=== PATIENT | male | born 1940 ===

== ENCOUNTER 2020-07-04 07:35 | Outpatient (REF) | payer MEDICARE, SELFPAY ==
[2020-07-04 10:12] LABS: MANUAL DIFF FLAG NO
[2020-07-04 10:44] LABS: Basophils Absolute Auto 0.1 X10*3/uL (0.0-0.2); Basophils Percent Auto 0.6 % (0-2); Eosinophils Absolute Auto 0.3 X10*3/uL (0.0-0.4); Eosinophils Percent Auto 3.5 % (0-4); Hematocrit 36.7 % (42-52); Hemoglobin 11.8 g/dl (14.0-18.0); Imm Gran Abs Auto 0.01 X10*3/uL (0.00-0.03); Imm Gran Pct Auto 0.1 % (0.0-0.4); Lymphocytes Absolute Auto 1.2 X10*3/uL (1.2-4.9); Lymphocytes Percent Auto 14.4 % (20-40); Mean Corpuscular HGB Conc 32.2 g/dl (31.0-36.0); Mean Corpuscular Volume 102.5 fL (80-98); Mean Platelet Volume 11.8 fL (9.4-12.4); Monocytes Absolute Auto 0.7 X10*3/uL (0.1-1.2); Monocytes Percent Auto 8.9 % (2-11); Neutrophils Absolute Auto 5.8 X10*3/uL (2.0-8.3); Neutrophils Percent Auto 72.5 % (45-73); Platelet Count 152 X10*3/uL (160-400); Red Blood Count 3.58 X10*6/uL (4.60-5.80); Red Cell Distribution Width 13.8 % (11.0-16.0); White Blood Count 8.1 X10*3/uL (4.8-10.8)
[2020-07-04 11:17] LABS: Alanine Aminotransferase 9 U/L (0-40); Albumin Level 3.3 g/dL (3.5-5.0); Alkaline Phosphatase 50 U/L (39-117); Anion Gap 9 (12-20); Aspartate Amino Transferase 16 U/L (5-37); Bilirubin Total 0.7 mg/dL (0.0-1.0); Blood Urea Nitrogen 30 mg/dL (9-16); Calcium 8.2 mg/dL (8.4-10.2); Carbon Dioxide 30 mmol/L (22-29); Chloride 106 mmol/L (96-108); Estimated Glomerular Filt Rate 39; Glucose Fasting 98 mg/dL (60-99); Magnesium 1.8 mg/dL (1.6-2.6); Phosphorus 3.4 mg/dL (2.7-4.5); Potassium 3.6 mmol/l (3.3-5.1); Sodium 141 mmol/L (135-145); Total Protein 5.8 g/dL (6.5-8.0)
[2020-07-06 01:17] LABS: Tacrolimus Prograf 4.2 mcg/L
== END 2020-07-04 07:36 | disposition home or self-care (01) ==
LOC: HO.10HDL 07:35
PROVIDERS: Visit Provider Internal Medicine Nephrology
DX: Z94.0 Kidney transplant status (principal)
CPT/HCPCS: 36415; 80053; 80197; 83735; 84100; 85025

== ENCOUNTER 2020-07-16 21:57 | Emergency (ER) | payer MEDICARE, SELFPAY ==
[2020-07-16 22:15] VITALS: BP 130/55; PULSE 87; RESP 18; TEMP 36.7; O2SAT 96; BMI 24.5
--- NOTE | 2020-07-16 22:16 | ECG_ITS ---
Test Reason : COUGH Blood Pressure : / mmHG Vent. Rate : 063 BPM Atrial Rate : 063 BPM P-R Int : 138 ms QRS Dur : 096 ms QT Int : 442 ms P-R-T Axes : 024 -19 064 degrees QTc Int : 452 ms Sinus rhythm with Premature atrial complexes Left anterior fascicular block Abnormal ECG When compared to prvious ECG of 14-JUL-2020 04:57:36 Premature atrial complexes are new Referred By: Ericka Guy Electronically Signed By:FLORENCE MENDOZA MD
--- NOTE | 2020-07-16 22:16 | ED.URI ---
HPI - URI/Sore Throat General Chief Complaint: Upper Respiratory Symptoms Stated Complaint: cough,covids swabb Time Seen by Provider: 07/16/20 22:15 Source: patient Mode of arrival: ambulatory Limitations: no limitations History of Present Illness HPI Narrative: cough for 2 days, ate bad carrots last night threw up x 2, PCP sent him in for CXR and COVID swab MD elicited complaint: cough and other (vomited x 2 in the middle of the night) Pertinent past history: immunosuppression (s/p renal transplant over 10 years ago on tacrolimus and prednisone) Onset (ago): day(s) (2) Consistency: intermittent Severity: mild Description of mucous: clear Able to tolerate fluids by mouth: Yes Exacerbating factors: nothing Relieving factors: nothing Associated symptoms: cough and vomiting Treatments prior to arrival: none Related Data Allergies Allergy/AdvReac Type Severity Reaction Status Date / Time No Known Allergies [NKA] Allergy Verified 07/16/20 22:13 Review of Systems Review of Systems: Constitutional : no Fever, no Chills, no fatigue, no Malaise ENT/Mouth : no sore throat, positive runny nose Eyes: No Discharge Cardiovascular : No Chest Pain, No SOB Respiratory : pos Cough, No Sputum Gastrointestinal : No Nausea, pos Vomiting, No Diarrhea Genitourinary : No Dysuria, No Urinary Frequency Musculoskeletal : positive Myalgia Skin : No rash Neuro : No Headache PMFSH Past Medical History Medical History Hernia Lymphedema Surgical History Kidney transplant recipient Renal transplant recipient Social History Social History (Updated 07/16/20 @ 22:35 by Ericka Guy DO) Alcohol intake: unknown Smoking Status: Former smoker Smoked in Last 30 Days: No Use of substances other than those prescribed or required for medical reasons: No Advance Directives: No Advance Directives Information Provided: No Advance Directives Date on File: 07/04/20 Physical Exam Vital Signs: Vital Signs: Vital Signs Temp Pulse Resp BP Pulse Ox 07/16/20 23:20 97.9 F 62 18 134/51 L 100 07/16/20 23:14 98 07/16/20 22:15 98.0 F 87 18 130/55 L 96 Body Mass Index 24.5 Appearance: Alert. Oriented X3. No acute distress. Eyes: Pupils equal, round and reactive to light. ENT: Pharynx normal. Neck: Normal inspection. Neck supple. CVS: Normal heart rate and rhythm. Pulses normal. Respiratory: No respiratory distress. Breath sounds normal. Abdomen: Soft and nontender. Skin: Skin warm and dry. Normal skin color. Normal skin turgor. Extremities: + bilateral 3+ lower extremity edema. No calf ttp Neuro: Oriented X 3. No motor deficit. No sensory deficit. Course Course Course Narrative: Cr 1.69 so only .3 increase from last check but will need close follow up with PCP, will provide gentle hydration no PNA on exam, COVID sent off MDM - URI/Sore Throat MDM Narrative Medical decision making narrative: 80 yo male with dry cough x 2 days but also thinks he ate some old carrots and vomited x 2 at 2am and 4am today - no belly pain no diarrhea, feels fine now, states his PCP sent him in for CXR and COVID swab, at this time will need labs, CXR, COVID swab - dispo per results and improvement Lab Data Result diagrams: 07/16/20 22:48 07/16/20 22:48 Labs: Lab Results 07/16/20 07/16/20 07/16/20 Range/Units 22:48 22:48 22:48 WBC 11.5 H (4.8-10.8) X10*3/uL RBC 3.36 L (4.60-5.80) X10*6/uL Hgb 11.2 L (14.0-18.0) g/dl Hct 34.1 L (42-52) % MCV 101.5 H (80-98) fL MCH 33.3 H (27.0-33.0) pg MCHC 32.8 (31.0-36.0) g/dl RDW 14.0 (11.0-16.0) % Plt Count 131 L (160-400) X10*3/uL MPV 11.1 (9.4-12.4) fL Immature Gran % (Auto) 0.3 (0.0-0.4) % Neut % (Auto) 82.7 H (45-73) % Lymph % (Auto) 9.5 L (20-40) % Moffat % (Auto) 6.5 (2-11) % Eos % (Auto) 0.8 (0-4) % Baso % (Auto) 0.2 (0-2) % Lymph # (Auto) 1.1 L (1.2-4.9) X10*3/uL Moffat # (Auto) 0.7 (0.1-1.2) X10*3/uL Eos # (Auto) 0.1 (0.0-0.4) X10*3/uL Baso # (Auto) 0.0 (0.0-0.2) X10*3/uL Abs Immat Gran (auto) 0.03 (0.00-0.03) X10*3/uL Absolute Neuts (auto) 9.5 H (2.0-8.3) X10*3/uL Absolute Nucleated RBC 0.000 (0.0-0.012) X10*3/uL Nucleated RBC % (auto) 0.0 (0.0-0.2) /100WBC Smear Tech's Comments VERIFIED PT 12.9 (10.8-13.0) SEC INR 1.1 (0.9-1.1) APTT 27.4 (24.1-38.0) SEC Sodium 140 (135-145) mmol/L Potassium 4.4 D (3.3-5.1) mmol/l Chloride 105 (96-108) mmol/L Carbon Dioxide 25 (22-29) mmol/L Anion Gap 14 (12-20) BUN 40 H (9-16) mg/dL Creatinine 2.08 H (0.5-1.4) mg/dL Estim Creat Clear Calc 28.7 Estimated GFR 31 Random Glucose 103 (60-115) mg/dL Calcium 8.1 L (8.4-10.2) mg/dL Magnesium (1.6-2.6) mg/dL Total Bilirubin (0.0-1.0) mg/dL Direct Bilirubin (0.0-0.5) mg/dL AST (5-37) U/L ALT (0-40) U/L Alkaline Phosphatase (39-117) U/L Total Protein (6.5-8.0) g/dL Albumin (3.5-5.0) g/dL 10/27/20 Range/Units 22:48 WBC (4.8-10.8) X10*3/uL RBC (4.60-5.80) X10*6/uL Hgb (14.0-18.0) g/dl Hct (42-52) % MCV (80-98) fL MCH (27.0-33.0) pg MCHC (31.0-36.0) g/dl RDW (11.0-16.0) % Plt Count (160-400) X10*3/uL MPV (9.4-12.4) fL Immature Gran % (Auto) (0.0-0.4) % Neut % (Auto) (45-73) % Lymph % (Auto) (20-40) % Moffat % (Auto) (2-11) % Eos % (Auto) (0-4) % Baso % (Auto) (0-2) % Lymph # (Auto) (1.2-4.9) X10*3/uL Moffat # (Auto) (0.1-1.2) X10*3/uL Eos # (Auto) (0.0-0.4) X10*3/uL Baso # (Auto) (0.0-0.2) X10*3/uL Abs Immat Gran (auto) (0.00-0.03) X10*3/uL Absolute Neuts (auto) (2.0-8.3) X10*3/uL Absolute Nucleated RBC (0.0-0.012) X10*3/uL Nucleated RBC % (auto) (0.0-0.2) /100WBC Smear Tech's Comments PT (10.8-13.0) SEC INR (0.9-1.1) APTT (24.1-38.0) SEC Sodium (135-145) mmol/L Potassium (3.3-5.1) mmol/l Chloride (96-108) mmol/L Carbon Dioxide (22-29) mmol/L Anion Gap (12-20) BUN (9-16) mg/dL Creatinine (0.5-1.4) mg/dL Estim Creat Clear Calc Estimated GFR Random Glucose (60-115) mg/dL Calcium (8.4-10.2) mg/dL Magnesium 2.0 (1.6-2.6) mg/dL Total Bilirubin 0.7 (0.0-1.0) mg/dL Direct Bilirubin 0.4 (0.0-0.5) mg/dL AST 18 (5-37) U/L ALT 8 (0-40) U/L Alkaline Phosphatase 53 (39-117) U/L Total Protein 6.0 L (6.5-8.0) g/dL Albumin 3.4 L (3.5-5.0) g/dL ECG Data Attestation: I personally reviewed and interpreted this ECG as follows: ECG interpretation date: 07/16/20 ECG interpretation time: 23:30 Interpretation: Rate: 63 Rhythm: NSR, frequent PACs [place]: left Normal P waves. Normal KAVON. Normal QRS complex. ST T wave : nonspecific qTC: normal prior studies: no acute ischemia The study has been interpreted contemporaneously by me. . Discharge Plan Discharge Clinical Impression: Acute kidney injury Patient Disposition: Home, Self-Care Instructions: COVID-19 (Coronavirus Disease 2019) (ED), Dehydration (ED) Additional Instructions: you were tested for COVID we will call you with results in 2 to 4 days, wear a mask, socially distance Referrals: Physician,Unknown [Primary Care Provider] - 2 days (call your doctor for repeat kidney function in 2 days, your last Cr was 1.7 today it was 2.0)
--- NOTE | 2020-07-16 22:17 | XR_ITS ---
EXAMINATION: XR CHEST CLINICAL INFORMATION: Cough COMPARISON: 01/11/2020 TECHNIQUE: Frontal view of the chest was obtained. FINDINGS: The heart and pulmonary vessels appear normal. No evidence of CHF. No acute infiltrates effusions or lung masses are seen. Again noted is bibasilar scarring/atelectasis. XR/XR chest 1V IMPRESSION: No acute intrathoracic disease.
[2020-07-16 22:57] LABS: Eosinophils Absolute Auto 0.1 X10*3/uL (0.0-0.4); Eosinophils Percent Auto 0.8 % (0-4); Imm Gran Abs Auto 0.03 X10*3/uL (0.00-0.03); Imm Gran Pct Auto 0.3 % (0.0-0.4); Lymphocytes Percent Auto 9.5 % (20-40); MANUAL DIFF FLAG SCAN; PLT CLUMP 1; SCAN SMEAR FLAG 1
[2020-07-16 22:59] LABS: Basophils Percent Auto 0.2 % (0-2); Hematocrit 34.1 % (42-52); Hemoglobin 11.2 g/dl (14.0-18.0); Lymphocytes Absolute Auto 1.1 X10*3/uL (1.2-4.9); Mean Corpuscular HGB Conc 32.8 g/dl (31.0-36.0); Mean Corpuscular Hemoglobin 33.3 pg (27.0-33.0); Mean Corpuscular Volume 101.5 fL (80-98); Mean Platelet Volume 11.1 fL (9.4-12.4); Monocytes Absolute Auto 0.7 X10*3/uL (0.1-1.2); Monocytes Percent Auto 6.5 % (2-11); Neutrophils Absolute Auto 9.5 X10*3/uL (2.0-8.3); Neutrophils Percent Auto 82.7 % (45-73); Platelet Count 131 X10*3/uL (160-400); Red Blood Count 3.36 X10*6/uL (4.60-5.80); White Blood Count 11.5 X10*3/uL (4.8-10.8)
[2020-07-16 23:00] LABS: SLIDE REVIEW VERIFIED
[2020-07-16 23:11] LABS: INTERNATIONAL NORM RATIO 1.1 (0.9-1.1); Prothrombin Time 12.9 SEC (10.8-13.0)
[2020-07-16 23:13] LABS: Partial Thromboplastin Time 27.4 SEC (24.1-38.0)
[2020-07-16 23:14] VITALS: O2SAT 98
[2020-07-16 23:20] VITALS: BP 134/51; PULSE 62; RESP 18; TEMP 36.6; O2SAT 100
[2020-07-16 23:36] LABS: Alanine Aminotransferase 8 U/L (0-40); Albumin Level 3.4 g/dL (3.5-5.0); Alkaline Phosphatase 53 U/L (39-117); Aspartate Amino Transferase 18 U/L (5-37); Bilirubin Direct 0.4 mg/dL (0.0-0.5); Bilirubin Total 0.7 mg/dL (0.0-1.0)
[2020-07-16 23:37] LABS: Anion Gap 14 (12-20); Blood Urea Nitrogen 40 mg/dL (9-16); Calcium 8.1 mg/dL (8.4-10.2); Carbon Dioxide 25 mmol/L (22-29); Chloride 105 mmol/L (96-108); Creatinine Clr Calc Pharmacy 28.7; Estimated Glomerular Filt Rate 31; Glucose Random 103 mg/dL (60-115); Potassium 4.4 mmol/l (3.3-5.1); Sodium 140 mmol/L (135-145)
[2020-07-16 23:43] LABS: B Type Natriuretic Peptide 416 pg/mL (<100)
[2020-07-16] MEDS: 0.9 % Sodium Chloride 1,000 ML 500 ML IVCONT (23:52)
[2020-07-17 01:39] VITALS: BP 145/62; PULSE 68; RESP 16; O2SAT 99
== END 2020-07-17 01:56 | disposition home or self-care (01) ==
PROVIDERS: Emergency Provider Emergency Medicine
DX: N17.9 Acute kidney failure, unspecified (principal); R11.10 Vomiting, unspecified; E86.0 Dehydration; Z20.828 Contact with and (suspected) exposure to other viral communicable diseases; Z87.891 Personal history of nicotine dependence; Z79.899 Other long term (current) drug therapy; Z94.0 Kidney transplant status
CPT/HCPCS: 36415; 71045; 80048; 80076; 83735; 83880; 85025; 85610; 85730; 87040; 87635; 93005; 96360; 96361; 99284

== ENCOUNTER 2020-08-07 08:53 | Outpatient (REF) | payer MEDICARE, SELFPAY ==
[2020-08-07 10:45] LABS: MANUAL DIFF FLAG NO
[2020-08-07 10:58] LABS: Basophils Percent Auto 0.5 % (0-2); Eosinophils Absolute Auto 0.3 X10*3/uL (0.0-0.4); Eosinophils Percent Auto 4.6 % (0-4); Hematocrit 35.1 % (42-52); Hemoglobin 11.3 g/dl (14.0-18.0); Imm Gran Abs Auto 0.01 X10*3/uL (0.00-0.03); Imm Gran Pct Auto 0.2 % (0.0-0.4); Lymphocytes Percent Auto 16.6 % (20-40); Mean Corpuscular HGB Conc 32.2 g/dl (31.0-36.0); Mean Corpuscular Hemoglobin 33.2 pg (27.0-33.0); Mean Corpuscular Volume 103.2 fL (80-98); Mean Platelet Volume 11.6 fL (9.4-12.4); Monocytes Absolute Auto 0.5 X10*3/uL (0.1-1.2); Monocytes Percent Auto 8.9 % (2-11); Neutrophils Absolute Auto 4.2 X10*3/uL (2.0-8.3); Neutrophils Percent Auto 69.2 % (45-73); Platelet Count 161 X10*3/uL (160-400); Red Cell Distribution Width 13.7 % (11.0-16.0)
[2020-08-07 11:42] LABS: Alanine Aminotransferase 8 U/L (0-40); Albumin Level 3.2 g/dL (3.5-5.0); Alkaline Phosphatase 46 U/L (39-117); Anion Gap 11 (12-20); Aspartate Amino Transferase 16 U/L (5-37); Bilirubin Total 0.7 mg/dL (0.0-1.0); Blood Urea Nitrogen 33 mg/dL (9-16); Calcium 8.1 mg/dL (8.4-10.2); Carbon Dioxide 26 mmol/L (22-29); Chloride 105 mmol/L (96-108); Estimated Glomerular Filt Rate 38; Glucose Random 138 mg/dL (60-115); Magnesium 1.9 mg/dL (1.6-2.6); Sodium 138 mmol/L (135-145); Total Protein 5.6 g/dL (6.5-8.0)
[2020-08-08 10:57] LABS: Tacrolimus Prograf 4.3 mcg/L
== END 2020-08-07 08:54 | disposition home or self-care (01) ==
LOC: HO.10HDL 08:53
PROVIDERS: Visit Provider Internal Medicine Nephrology
DX: D89.9 Disorder involving the immune mechanism, unspecified (principal); Z94.0 Kidney transplant status
CPT/HCPCS: 36415; 80053; 80197; 83735; 85025

== ENCOUNTER 2020-10-10 08:25 | Outpatient (REF) | payer MEDICARE, SELFPAY ==
[2020-10-10 10:14] LABS: MANUAL DIFF FLAG NO
[2020-10-10 10:18] LABS: Basophils Percent Auto 0.7 % (0-2); Eosinophils Absolute Auto 0.3 X10*3/uL (0.0-0.4); Eosinophils Percent Auto 4.1 % (0-4); Hematocrit 35.8 % (42-52); Hemoglobin 11.7 g/dl (14.0-18.0); Imm Gran Abs Auto 0.01 X10*3/uL (0.00-0.03); Imm Gran Pct Auto 0.2 % (0.0-0.4); Lymphocytes Absolute Auto 1.1 X10*3/uL (1.2-4.9); Lymphocytes Percent Auto 18.5 % (20-40); Mean Corpuscular HGB Conc 32.7 g/dl (31.0-36.0); Mean Corpuscular Hemoglobin 33.7 pg (27.0-33.0); Mean Corpuscular Volume 103.2 fL (80-98); Mean Platelet Volume 11.5 fL (9.4-12.4); Monocytes Absolute Auto 0.6 X10*3/uL (0.1-1.2); Monocytes Percent Auto 9.9 % (2-11); Neutrophils Absolute Auto 4.1 X10*3/uL (2.0-8.3); Neutrophils Percent Auto 66.6 % (45-73); Platelet Count 141 X10*3/uL (160-400); Red Blood Count 3.47 X10*6/uL (4.60-5.80); Red Cell Distribution Width 13.7 % (11.0-16.0); White Blood Count 6.1 X10*3/uL (4.8-10.8)
[2020-10-10 10:56] LABS: Alanine Aminotransferase 10 U/L (0-40); Albumin Level 3.2 g/dL (3.5-5.0); Alkaline Phosphatase 45 U/L (39-117); Anion Gap 12 (12-20); Aspartate Amino Transferase 15 U/L (5-37); Bilirubin Total 0.5 mg/dL (0.0-1.0); Blood Urea Nitrogen 33 mg/dL (9-16); Calcium 8.1 mg/dL (8.4-10.2); Carbon Dioxide 27 mmol/L (22-29); Chloride 106 mmol/L (96-108); Estimated Glomerular Filt Rate 41; Glucose Fasting 95 mg/dL (60-99); Magnesium 1.9 mg/dL (1.6-2.6); Phosphorus 3.4 mg/dL (2.7-4.5); Sodium 141 mmol/L (135-145); Total Protein 5.5 g/dL (6.5-8.0)
== END 2020-10-10 08:26 | disposition home or self-care (01) ==
LOC: HO.10HDL 08:25
PROVIDERS: Absent Provider Family Medicine; Referring Provider Internal Medicine Nephrology; Visit Provider Internal Medicine Nephrology
DX: D89.9 Disorder involving the immune mechanism, unspecified (principal); Z94.0 Kidney transplant status
CPT/HCPCS: 36415; 80053; 80197; 83735; 84100; 85025

== ENCOUNTER 2020-11-11 08:54 | Outpatient (REF) | payer MEDICARE, SELFPAY ==
[2020-11-11 10:18] LABS: MANUAL DIFF FLAG NO
[2020-11-11 10:22] LABS: Basophils Percent Auto 0.6 % (0-2); Eosinophils Absolute Auto 0.2 X10*3/uL (0.0-0.4); Eosinophils Percent Auto 4.6 % (0-4); Hematocrit 36.2 % (42-52); Hemoglobin 11.7 g/dl (14.0-18.0); Imm Gran Abs Auto 0.01 X10*3/uL (0.00-0.03); Imm Gran Pct Auto 0.2 % (0.0-0.4); Lymphocytes Absolute Auto 1.3 X10*3/uL (1.2-4.9); Lymphocytes Percent Auto 26.3 % (20-40); Mean Corpuscular HGB Conc 32.3 g/dl (31.0-36.0); Mean Corpuscular Hemoglobin 33.5 pg (27.0-33.0); Mean Corpuscular Volume 103.7 fL (80-98); Mean Platelet Volume 11.7 fL (9.4-12.4); Monocytes Absolute Auto 0.5 X10*3/uL (0.1-1.2); Monocytes Percent Auto 10.2 % (2-11); Neutrophils Absolute Auto 2.9 X10*3/uL (2.0-8.3); Neutrophils Percent Auto 58.1 % (45-73); Platelet Count 135 X10*3/uL (160-400); Red Blood Count 3.49 X10*6/uL (4.60-5.80); Red Cell Distribution Width 13.7 % (11.0-16.0)
[2020-11-11 10:48] LABS: Alanine Aminotransferase 8 U/L (0-40); Albumin Level 3.2 g/dL (3.5-5.0); Alkaline Phosphatase 46 U/L (39-117); Anion Gap 12 (12-20); Aspartate Amino Transferase 15 U/L (5-37); Bilirubin Total 0.8 mg/dL (0.0-1.0); Blood Urea Nitrogen 33 mg/dL (9-16); Calcium 8.1 mg/dL (8.4-10.2); Carbon Dioxide 28 mmol/L (22-29); Chloride 108 mmol/L (96-108); Estimated Glomerular Filt Rate 35; Glucose Random 153 mg/dL (60-115); Magnesium 1.8 mg/dL (1.6-2.6); Phosphorus 3.4 mg/dL (2.7-4.5); Sodium 144 mmol/L (135-145); Total Protein 5.6 g/dL (6.5-8.0)
[2020-11-12 08:21] LABS: Tacrolimus Prograf 4.7 mcg/L
== END 2020-11-11 08:55 | disposition home or self-care (01) ==
LOC: HO.10HDL 08:54
PROVIDERS: Absent Provider Family Medicine; Referring Provider Internal Medicine Nephrology; Visit Provider Internal Medicine Nephrology
DX: D89.9 Disorder involving the immune mechanism, unspecified (principal); Z94.0 Kidney transplant status
CPT/HCPCS: 36415; 80053; 80197; 83735; 84100; 85025

== ENCOUNTER 2020-12-04 09:07 | Outpatient (REF) | payer MEDICARE, SELFPAY ==
[2020-12-04 10:26] LABS: Basophils Percent Auto 0.7 % (0-2); Eosinophils Absolute Auto 0.3 X10*3/uL (0.0-0.4); Eosinophils Percent Auto 5.6 % (0-4); Hematocrit 35.3 % (42-52); Hemoglobin 11.4 g/dl (14.0-18.0); Imm Gran Abs Auto 0.02 X10*3/uL (0.00-0.03); Imm Gran Pct Auto 0.3 % (0.0-0.4); Lymphocytes Absolute Auto 1.2 X10*3/uL (1.2-4.9); Lymphocytes Percent Auto 20.2 % (20-40); MANUAL DIFF FLAG NO; Mean Corpuscular HGB Conc 32.3 g/dl (31.0-36.0); Mean Corpuscular Hemoglobin 33.6 pg (27.0-33.0); Mean Corpuscular Volume 104.1 fL (80-98); Mean Platelet Volume 11.7 fL (9.4-12.4); Monocytes Absolute Auto 0.7 X10*3/uL (0.1-1.2); Monocytes Percent Auto 10.9 % (2-11); Neutrophils Absolute Auto 3.7 X10*3/uL (2.0-8.3); Neutrophils Percent Auto 62.3 % (45-73); Platelet Count 137 X10*3/uL (160-400); Red Blood Count 3.39 X10*6/uL (4.60-5.80); Red Cell Distribution Width 13.7 % (11.0-16.0); White Blood Count 5.9 X10*3/uL (4.8-10.8)
[2020-12-04 11:06] LABS: Alanine Aminotransferase 7 U/L (0-40); Albumin Level 3.2 g/dL (3.5-5.0); Alkaline Phosphatase 44 U/L (39-117); Anion Gap 11 (12-20); Aspartate Amino Transferase 15 U/L (5-37); Bilirubin Total 0.8 mg/dL (0.0-1.0); Blood Urea Nitrogen 36 mg/dL (9-16); Calcium 7.9 mg/dL (8.4-10.2); Carbon Dioxide 27 mmol/L (22-29); Chloride 109 mmol/L (96-108); Estimated Glomerular Filt Rate 36; Glucose Random 117 mg/dL (60-115); Magnesium 1.9 mg/dL (1.6-2.6); Phosphorus 3.8 mg/dL (2.7-4.5); Sodium 143 mmol/L (135-145); Total Protein 5.5 g/dL (6.5-8.0)
[2020-12-05 08:02] LABS: Tacrolimus Prograf 4.2 mcg/L
== END 2020-12-04 09:08 | disposition home or self-care (01) ==
LOC: HO.10HDLR 09:07
PROVIDERS: Absent Provider Family Medicine; Referring Provider Internal Medicine Nephrology; Visit Provider Internal Medicine Nephrology
DX: D89.9 Disorder involving the immune mechanism, unspecified (principal); Z94.0 Kidney transplant status
CPT/HCPCS: 36415; 80053; 80197; 83735; 84100; 85025

== ENCOUNTER 2021-01-02 08:31 | Outpatient (REF) | payer MEDICARE, SELFPAY ==
[2021-01-02 10:21] LABS: MANUAL DIFF FLAG NO
[2021-01-02 10:23] LABS: Basophils Absolute Auto 0.1 X10*3/uL (0.0-0.2); Basophils Percent Auto 0.8 % (0-2); Eosinophils Absolute Auto 0.3 X10*3/uL (0.0-0.4); Eosinophils Percent Auto 4.6 % (0-4); Hematocrit 37.1 % (42-52); Hemoglobin 12.2 g/dl (14.0-18.0); Imm Gran Abs Auto 0.01 X10*3/uL (0.00-0.03); Imm Gran Pct Auto 0.2 % (0.0-0.4); Lymphocytes Absolute Auto 1.3 X10*3/uL (1.2-4.9); Lymphocytes Percent Auto 20.5 % (20-40); Mean Corpuscular HGB Conc 32.9 g/dl (31.0-36.0); Mean Corpuscular Hemoglobin 34.1 pg (27.0-33.0); Mean Corpuscular Volume 103.6 fL (80-98); Mean Platelet Volume 11.8 fL (9.4-12.4); Monocytes Absolute Auto 0.7 X10*3/uL (0.1-1.2); Monocytes Percent Auto 10.2 % (2-11); Neutrophils Absolute Auto 4.2 X10*3/uL (2.0-8.3); Neutrophils Percent Auto 63.7 % (45-73); Platelet Count 147 X10*3/uL (160-400); Red Blood Count 3.58 X10*6/uL (4.60-5.80); Red Cell Distribution Width 13.4 % (11.0-16.0); White Blood Count 6.6 X10*3/uL (4.8-10.8)
[2021-01-02 10:44] LABS: Alanine Aminotransferase 10 U/L (0-40); Albumin Level 3.4 g/dL (3.5-5.0); Alkaline Phosphatase 47 U/L (39-117); Anion Gap 12 (12-20); Aspartate Amino Transferase 14 U/L (5-37); Bilirubin Total 0.8 mg/dL (0.0-1.0); Blood Urea Nitrogen 34 mg/dL (9-16); Calcium 8.3 mg/dL (8.4-10.2); Carbon Dioxide 26 mmol/L (22-29); Chloride 109 mmol/L (96-108); Estimated Glomerular Filt Rate 40; Glucose Fasting 101 mg/dL (60-99); Magnesium 1.9 mg/dL (1.6-2.6); Phosphorus 3.3 mg/dL (2.7-4.5); Sodium 143 mmol/L (135-145); Total Protein 5.9 g/dL (6.5-8.0)
[2021-01-03 05:32] LABS: Tacrolimus Prograf 3.7 mcg/L
== END 2021-01-02 08:32 | disposition home or self-care (01) ==
LOC: HO.10HDLR 08:31
PROVIDERS: Absent Provider Family Medicine; Referring Provider Internal Medicine Nephrology; Visit Provider Internal Medicine Nephrology
DX: Z94.0 Kidney transplant status (principal)
CPT/HCPCS: 36415; 80053; 80197; 83735; 84100; 85025

== ENCOUNTER 2021-01-30 09:27 | Outpatient (REF) | payer MEDICARE, SELFPAY ==
[2021-01-30 10:23] LABS: MANUAL DIFF FLAG NO
[2021-01-30 10:30] LABS: Basophils Absolute Auto 0.1 X10*3/uL (0.0-0.2); Eosinophils Absolute Auto 0.3 X10*3/uL (0.0-0.4); Eosinophils Percent Auto 5.5 % (0-4); Hematocrit 35.3 % (42-52); Hemoglobin 11.4 g/dl (14.0-18.0); Imm Gran Abs Auto 0.02 X10*3/uL (0.00-0.03); Imm Gran Pct Auto 0.4 % (0.0-0.4); Lymphocytes Absolute Auto 0.9 X10*3/uL (1.2-4.9); Lymphocytes Percent Auto 17.3 % (20-40); Mean Corpuscular HGB Conc 32.3 g/dl (31.0-36.0); Mean Corpuscular Hemoglobin 33.6 pg (27.0-33.0); Mean Corpuscular Volume 104.1 fL (80-98); Mean Platelet Volume 11.6 fL (9.4-12.4); Monocytes Absolute Auto 0.5 X10*3/uL (0.1-1.2); Monocytes Percent Auto 10.3 % (2-11); Neutrophils Absolute Auto 3.5 X10*3/uL (2.0-8.3); Neutrophils Percent Auto 65.5 % (45-73); Platelet Count 144 X10*3/uL (160-400); Red Blood Count 3.39 X10*6/uL (4.60-5.80); Red Cell Distribution Width 13.6 % (11.0-16.0); White Blood Count 5.3 X10*3/uL (4.8-10.8)
[2021-01-30 10:46] LABS: Alanine Aminotransferase 10 U/L (0-40); Albumin Level 3.2 g/dL (3.5-5.0); Alkaline Phosphatase 46 U/L (39-117); Anion Gap 11 (12-20); Aspartate Amino Transferase 13 U/L (5-37); Bilirubin Total 0.5 mg/dL (0.0-1.0); Blood Urea Nitrogen 35 mg/dL (9-16); Calcium 8.3 mg/dL (8.4-10.2); Carbon Dioxide 28 mmol/L (22-29); Chloride 108 mmol/L (96-108); Estimated Glomerular Filt Rate 36; Glucose Random 116 mg/dL (60-115); Magnesium 1.8 mg/dL (1.6-2.6); Phosphorus 3.3 mg/dL (2.7-4.5); Potassium 3.9 mmol/L (3.3-5.1); Sodium 143 mmol/L (135-145); Total Protein 5.4 g/dL (6.5-8.0)
[2021-01-31 08:42] LABS: Tacrolimus Prograf 4.8 mcg/L
== END 2021-01-30 09:28 | disposition home or self-care (01) ==
LOC: HO.10HDLR 09:27
PROVIDERS: Absent Provider Family Medicine; Referring Provider Internal Medicine Nephrology; Visit Provider Internal Medicine Nephrology
DX: Z79.899 Other long term (current) drug therapy (principal); Z94.0 Kidney transplant status
CPT/HCPCS: 36415; 80053; 80197; 83735; 84100; 85025

== ENCOUNTER 2021-03-12 08:28 | Outpatient (REF) | payer MEDICARE, SELFPAY ==
[2021-03-12 10:12] LABS: MANUAL DIFF FLAG NO
[2021-03-12 10:21] LABS: Basophils Percent Auto 0.8 % (0-2); Eosinophils Absolute Auto 0.3 X10*3/uL (0.0-0.4); Eosinophils Percent Auto 5.5 % (0-4); Hematocrit 35.3 % (42-52); Hemoglobin 11.5 g/dl (14.0-18.0); Imm Gran Abs Auto 0.01 X10*3/uL (0.00-0.03); Imm Gran Pct Auto 0.2 % (0.0-0.4); Lymphocytes Absolute Auto 1.1 X10*3/uL (1.2-4.9); Lymphocytes Percent Auto 20.2 % (20-40); Mean Corpuscular HGB Conc 32.6 g/dl (31.0-36.0); Mean Corpuscular Volume 104.4 fL (80-98); Mean Platelet Volume 11.6 fL (9.4-12.4); Monocytes Absolute Auto 0.5 X10*3/uL (0.1-1.2); Neutrophils Absolute Auto 3.4 X10*3/uL (2.0-8.3); Neutrophils Percent Auto 63.3 % (45-73); Platelet Count 146 X10*3/uL (160-400); Red Blood Count 3.38 X10*6/uL (4.60-5.80); Red Cell Distribution Width 13.4 % (11.0-16.0); White Blood Count 5.3 X10*3/uL (4.8-10.8)
[2021-03-12 10:48] LABS: Alanine Aminotransferase 7 U/L (0-40); Albumin Level 3.2 g/dL (3.5-5.0); Alkaline Phosphatase 47 U/L (39-117); Anion Gap 12 (12-20); Aspartate Amino Transferase 16 U/L (5-37); Bilirubin Total 0.8 mg/dL (0.0-1.0); Blood Urea Nitrogen 34 mg/dL (9-16); Calcium 8.3 mg/dL (8.4-10.2); Carbon Dioxide 27 mmol/L (22-29); Chloride 106 mmol/L (96-108); Estimated Glomerular Filt Rate 37; Glucose Random 159 mg/dL (60-115); Magnesium 1.9 mg/dL (1.6-2.6); Phosphorus 3.3 mg/dL (2.7-4.5); Potassium 3.9 mmol/L (3.3-5.1); Sodium 141 mmol/L (135-145); Total Protein 5.7 g/dL (6.5-8.0)
== END 2021-03-12 08:29 | disposition home or self-care (01) ==
LOC: HO.10HDL 08:28
PROVIDERS: Visit Provider Internal Medicine Nephrology
DX: Z94.0 Kidney transplant status (principal)
CPT/HCPCS: 36415; 80053; 80197; 83735; 84100; 85025

== ENCOUNTER 2021-05-12 08:55 | Outpatient (REF) | payer MEDICARE, SELFPAY ==
[2021-05-12 10:13] LABS: MANUAL DIFF FLAG NO
[2021-05-12 10:19] LABS: Basophils Percent Auto 0.7 % (0-2); Eosinophils Absolute Auto 0.4 X10*3/uL (0.0-0.4); Eosinophils Percent Auto 7.9 % (0-4); Hematocrit 34.5 % (42-52); Hemoglobin 11.1 g/dl (14.0-18.0); Imm Gran Abs Auto 0.01 X10*3/uL (0.00-0.03); Imm Gran Pct Auto 0.2 % (0.0-0.4); Lymphocytes Absolute Auto 0.9 X10*3/uL (1.2-4.9); Lymphocytes Percent Auto 16.1 % (20-40); Mean Corpuscular HGB Conc 32.2 g/dl (31.0-36.0); Mean Corpuscular Hemoglobin 33.4 pg (27.0-33.0); Mean Corpuscular Volume 103.9 fL (80-98); Mean Platelet Volume 11.6 fL (9.4-12.4); Monocytes Absolute Auto 0.6 X10*3/uL (0.1-1.2); Monocytes Percent Auto 11.3 % (2-11); Neutrophils Absolute Auto 3.6 X10*3/uL (2.0-8.3); Neutrophils Percent Auto 63.8 % (45-73); Platelet Count 163 X10*3/uL (160-400); Red Blood Count 3.32 X10*6/uL (4.60-5.80); Red Cell Distribution Width 13.7 % (11.0-16.0); White Blood Count 5.6 X10*3/uL (4.8-10.8)
[2021-05-12 10:45] LABS: Alanine Aminotransferase 14 U/L (0-40); Albumin Level 3.2 g/dL (3.5-5.0); Alkaline Phosphatase 45 U/L (39-117); Anion Gap 13 (12-20); Aspartate Amino Transferase 18 U/L (5-37); Bilirubin Total 0.7 mg/dL (0.0-1.0); Blood Urea Nitrogen 39 mg/dL (9-16); Calcium 8.3 mg/dL (8.4-10.2); Carbon Dioxide 24 mmol/L (22-29); Chloride 111 mmol/L (96-108); Estimated Glomerular Filt Rate 34; Glucose Random 161 mg/dL (60-115); Magnesium 1.9 mg/dL (1.6-2.6); Phosphorus 3.7 mg/dL (2.7-4.5); Potassium 4.2 mmol/L (3.3-5.1); Sodium 144 mmol/L (135-145); Total Protein 5.6 g/dL (6.5-8.0)
[2021-05-13 06:22] LABS: Tacrolimus Prograf 4.5 mcg/L
== END 2021-05-12 08:56 | disposition home or self-care (01) ==
LOC: HO.10HDLR 08:55
PROVIDERS: PCP Family Medicine; Visit Provider Internal Medicine Nephrology
DX: Z94.0 Kidney transplant status (principal); Z79.899 Other long term (current) drug therapy
CPT/HCPCS: 36415; 80053; 80197; 83735; 84100; 85025

== ENCOUNTER 2021-06-11 08:28 | Outpatient (REF) | payer MEDICARE, SELFPAY ==
[2021-06-11 10:17] LABS: MANUAL DIFF FLAG NO
[2021-06-11 10:21] LABS: Basophils Absolute Auto 0.1 X10*3/uL (0.0-0.2); Basophils Percent Auto 0.6 % (0-2); Eosinophils Absolute Auto 0.3 X10*3/uL (0.0-0.4); Hematocrit 36.6 % (42-52); Imm Gran Abs Auto 0.01 X10*3/uL (0.00-0.03); Imm Gran Pct Auto 0.1 % (0.0-0.4); Lymphocytes Absolute Auto 1.2 X10*3/uL (1.2-4.9); Mean Corpuscular HGB Conc 32.8 g/dl (31.0-36.0); Mean Corpuscular Hemoglobin 33.9 pg (27.0-33.0); Mean Corpuscular Volume 103.4 fL (80-98); Mean Platelet Volume 11.7 fL (9.4-12.4); Monocytes Absolute Auto 0.8 X10*3/uL (0.1-1.2); Monocytes Percent Auto 8.8 % (2-11); Neutrophils Absolute Auto 6.2 X10*3/uL (2.0-8.3); Neutrophils Percent Auto 72.5 % (45-73); Platelet Count 125 X10*3/uL (160-400); Red Blood Count 3.54 X10*6/uL (4.60-5.80); Red Cell Distribution Width 13.6 % (11.0-16.0); White Blood Count 8.5 X10*3/uL (4.8-10.8)
[2021-06-11 10:49] LABS: Alanine Aminotransferase 17 U/L (0-40); Albumin Level 3.4 g/dL (3.5-5.0); Alkaline Phosphatase 44 U/L (39-117); Anion Gap 12 (12-20); Aspartate Amino Transferase 19 U/L (5-37); Bilirubin Total 0.7 mg/dL (0.0-1.0); Blood Urea Nitrogen 35 mg/dL (9-16); Calcium 8.8 mg/dL (8.4-10.2); Carbon Dioxide 26 mmol/L (22-29); Chloride 108 mmol/L (96-108); Estimated Glomerular Filt Rate 37; Glucose Fasting 92 mg/dL (60-99); Magnesium 1.8 mg/dL (1.6-2.6); Phosphorus 3.9 mg/dL (2.7-4.5); Potassium 3.9 mmol/L (3.3-5.1); Sodium 142 mmol/L (135-145); Total Protein 5.9 g/dL (6.5-8.0)
[2021-06-12 10:56] LABS: Tacrolimus Prograf 4.6 mcg/L
== END 2021-06-11 08:29 | disposition home or self-care (01) ==
LOC: HO.10HDLR 08:28
PROVIDERS: Absent Provider Family Medicine; Referring Provider Internal Medicine Nephrology; Visit Provider Internal Medicine Nephrology
DX: Z94.0 Kidney transplant status (principal); Z79.899 Other long term (current) drug therapy
CPT/HCPCS: 36415; 80053; 80197; 83735; 84100; 85025

== ENCOUNTER 2021-07-02 08:47 | Outpatient (REF) | payer MEDICARE, SELFPAY ==
[2021-07-02 10:11] LABS: MANUAL DIFF FLAG NO
[2021-07-02 10:15] LABS: Basophils Absolute Auto 0.1 X10*3/uL (0.0-0.2); Basophils Percent Auto 0.9 % (0-2); Eosinophils Absolute Auto 0.3 X10*3/uL (0.0-0.4); Eosinophils Percent Auto 4.8 % (0-4); Hematocrit 36.1 % (42-52); Imm Gran Abs Auto 0.02 X10*3/uL (0.00-0.03); Imm Gran Pct Auto 0.3 % (0.0-0.4); Lymphocytes Absolute Auto 1.5 X10*3/uL (1.2-4.9); Lymphocytes Percent Auto 21.7 % (20-40); Mean Corpuscular HGB Conc 33.2 g/dl (31.0-36.0); Mean Corpuscular Hemoglobin 34.4 pg (27.0-33.0); Mean Corpuscular Volume 103.4 fL (80-98); Mean Platelet Volume 11.9 fL (9.4-12.4); Monocytes Absolute Auto 0.7 X10*3/uL (0.1-1.2); Neutrophils Absolute Auto 4.3 X10*3/uL (2.0-8.3); Neutrophils Percent Auto 62.3 % (45-73); Platelet Count 133 X10*3/uL (160-400); Red Blood Count 3.49 X10*6/uL (4.60-5.80); Red Cell Distribution Width 13.4 % (11.0-16.0); White Blood Count 6.9 X10*3/uL (4.8-10.8)
[2021-07-02 10:27] LABS: Alanine Aminotransferase 15 U/L (0-40); Albumin Level 3.3 g/dL (3.5-5.0); Alkaline Phosphatase 42 U/L (39-117); Anion Gap 11 (12-20); Aspartate Amino Transferase 20 U/L (5-37); Bilirubin Total 0.9 mg/dL (0.0-1.0); Blood Urea Nitrogen 31 mg/dL (9-16); Calcium 8.3 mg/dL (8.4-10.2); Carbon Dioxide 26 mmol/L (22-29); Chloride 107 mmol/L (96-108); Estimated Glomerular Filt Rate 40; Glucose Random 138 mg/dL (60-115); Magnesium 1.8 mg/dL (1.6-2.6); Phosphorus 3.3 mg/dL (2.7-4.5); Potassium 3.8 mmol/L (3.3-5.1); Sodium 140 mmol/L (135-145); Total Protein 5.8 g/dL (6.5-8.0)
[2021-07-03 11:11] LABS: Tacrolimus Prograf 4.9 mcg/L
== END 2021-07-02 08:48 | disposition home or self-care (01) ==
LOC: HO.10HDLR 08:47
PROVIDERS: Absent Provider Family Medicine; Referring Provider Internal Medicine Nephrology; Visit Provider Internal Medicine Nephrology
DX: Z94.0 Kidney transplant status (principal); Z79.899 Other long term (current) drug therapy
CPT/HCPCS: 36415; 80053; 80197; 83735; 84100; 85025

== ENCOUNTER 2021-08-11 08:49 | Outpatient (REF) | payer MEDICARE, SELFPAY ==
[2021-08-11 10:08] LABS: MANUAL DIFF FLAG NO
[2021-08-11 10:13] LABS: Basophils Absolute Auto 0.1 X10*3/uL (0.0-0.2); Basophils Percent Auto 0.5 % (0-2); Eosinophils Absolute Auto 0.3 X10*3/uL (0.0-0.4); Eosinophils Percent Auto 3.4 % (0-4); Hematocrit 35.6 % (42.0-52.0); Hemoglobin 11.7 g/dl (14.0-18.0); Imm Gran Abs Auto 0.03 X10*3/uL (0.00-0.03); Imm Gran Pct Auto 0.3 % (0.0-0.4); Lymphocytes Absolute Auto 0.8 X10*3/uL (1.2-4.9); Lymphocytes Percent Auto 8.8 % (20-40); Mean Corpuscular HGB Conc 32.9 g/dl (31.0-36.0); Mean Corpuscular Hemoglobin 34.3 pg (27.0-33.0); Mean Corpuscular Volume 104.4 fL (80.0-98.0); Mean Platelet Volume 11.4 fL (9.4-12.4); Monocytes Absolute Auto 0.7 X10*3/uL (0.1-1.2); Neutrophils Absolute Auto 7.3 x10*3/uL (2.0-8.3); Platelet Count 145 X10*3/uL (160-400); Red Blood Count 3.41 X10*6/uL (4.60-5.80); Red Cell Distribution Width 13.7 % (11.0-16.0); White Blood Count 9.2 X10*3/uL (4.8-10.8)
[2021-08-11 10:39] LABS: Alanine Aminotransferase 16 U/L (0-40); Albumin Level 3.1 g/dL (3.5-5.0); Alkaline Phosphatase 45 U/L (39-117); Anion Gap 13 (12-20); Aspartate Amino Transferase 18 U/L (5-37); Bilirubin Total 0.7 mg/dL (0.0-1.0); Blood Urea Nitrogen 29 mg/dL (9-16); Calcium 8.1 mg/dL (8.4-10.2); Carbon Dioxide 26 mmol/L (22-29); Chloride 109 mmol/L (96-108); Estimated Glomerular Filt Rate 37; Glucose Random 124 mg/dL (60-115); Magnesium 1.8 mg/dL (1.6-2.6); Phosphorus 3.1 mg/dL (2.7-4.5); Sodium 144 mmol/L (135-145); Total Protein 5.5 g/dL (6.5-8.0)
[2021-08-12 19:51] LABS: Tacrolimus Prograf 4.5 mcg/L
== END 2021-08-11 08:50 | disposition home or self-care (01) ==
LOC: HO.10HDL 08:49
PROVIDERS: Absent Provider Internal Medicine Nephrology; Referring Provider Family Medicine; Visit Provider Internal Medicine Nephrology
DX: Z94.0 Kidney transplant status (principal)
CPT/HCPCS: 36415; 80053; 80197; 83735; 84100; 85025

== ENCOUNTER 2021-09-03 09:21 | Outpatient (REF) | payer MEDICARE, SELFPAY ==
[2021-09-03 10:04] LABS: MANUAL DIFF FLAG NO
[2021-09-03 10:10] LABS: Basophils Absolute Auto 0.1 X10*3/uL (0.0-0.2); Basophils Percent Auto 0.6 % (0-2); Eosinophils Absolute Auto 0.2 X10*3/uL (0.0-0.4); Eosinophils Percent Auto 2.1 % (0-4); Hematocrit 36.2 % (42.0-52.0); Imm Gran Abs Auto 0.02 X10*3/uL (0.00-0.03); Imm Gran Pct Auto 0.2 % (0.0-0.4); Lymphocytes Absolute Auto 0.9 X10*3/uL (1.2-4.9); Mean Corpuscular HGB Conc 33.1 g/dl (31.0-36.0); Mean Corpuscular Volume 105.5 fL (80.0-98.0); Mean Platelet Volume 11.2 fL (9.4-12.4); Monocytes Absolute Auto 0.7 X10*3/uL (0.1-1.2); Monocytes Percent Auto 7.8 % (2-11); Neutrophils Absolute Auto 6.6 x10*3/uL (2.0-8.3); Neutrophils Percent Auto 78.3 % (45-73); Platelet Count 180 X10*3/uL (160-400); Red Blood Count 3.43 X10*6/uL (4.60-5.80); Red Cell Distribution Width 13.8 % (11.0-16.0); White Blood Count 8.5 X10*3/uL (4.8-10.8)
[2021-09-03 10:53] LABS: Alanine Aminotransferase 13 U/L (0-40); Albumin Level 3.1 g/dL (3.5-5.0); Alkaline Phosphatase 47 U/L (39-117); Anion Gap 14 (12-20); Aspartate Amino Transferase 18 U/L (5-37); Bilirubin Total 0.5 mg/dL (0.0-1.0); Blood Urea Nitrogen 33 mg/dL (9-16); Calcium 8.5 mg/dL (8.4-10.2); Carbon Dioxide 26 mmol/L (22-29); Chloride 107 mmol/L (96-108); Estimated Glomerular Filt Rate 36; Glucose Random 155 mg/dL (60-115); Magnesium 1.7 mg/dL (1.6-2.6); Phosphorus 3.6 mg/dL (2.7-4.5); Sodium 143 mmol/L (135-145); Total Protein 5.5 g/dL (6.5-8.0)
[2021-09-04 09:21] LABS: Tacrolimus Prograf 4.1 mcg/L
== END 2021-09-03 09:22 | disposition home or self-care (01) ==
LOC: HO.10HDLR 09:21
PROVIDERS: Absent Provider Family Medicine; Referring Provider Internal Medicine Nephrology; Visit Provider Internal Medicine Nephrology
DX: Z94.0 Kidney transplant status (principal)
CPT/HCPCS: 36415; 80053; 80197; 83735; 84100; 85025

== ENCOUNTER 2021-10-14 08:50 | Outpatient (REF) | payer MEDICARE, SELFPAY ==
[2021-10-14 10:16] LABS: MANUAL DIFF FLAG NO
[2021-10-14 10:19] LABS: Basophils Absolute Auto 0.1 X10*3/uL (0.0-0.2); Basophils Percent Auto 0.8 % (0-2); Eosinophils Absolute Auto 0.3 X10*3/uL (0.0-0.4); Eosinophils Percent Auto 3.9 % (0-4); Hematocrit 37.6 % (42.0-52.0); Hemoglobin 12.2 g/dl (14.0-18.0); Imm Gran Abs Auto 0.01 X10*3/uL (0.00-0.03); Imm Gran Pct Auto 0.1 % (0.0-0.4); Lymphocytes Absolute Auto 1.3 X10*3/uL (1.2-4.9); Lymphocytes Percent Auto 18.6 % (20-40); Mean Corpuscular HGB Conc 32.4 g/dl (31.0-36.0); Mean Corpuscular Hemoglobin 34.2 pg (27.0-33.0); Mean Corpuscular Volume 105.3 fL (80.0-98.0); Mean Platelet Volume 11.7 fL (9.4-12.4); Monocytes Absolute Auto 0.8 X10*3/uL (0.1-1.2); Monocytes Percent Auto 10.4 % (2-11); Neutrophils Absolute Auto 4.8 x10*3/uL (2.0-8.3); Neutrophils Percent Auto 66.2 % (45-73); Platelet Count 161 X10*3/uL (160-400); Red Blood Count 3.57 X10*6/uL (4.60-5.80); Red Cell Distribution Width 13.7 % (11.0-16.0); White Blood Count 7.2 X10*3/uL (4.8-10.8)
[2021-10-14 10:46] LABS: Alanine Aminotransferase 13 U/L (0-40); Albumin Level 3.1 g/dL (3.5-5.0); Alkaline Phosphatase 45 U/L (39-117); Anion Gap 13 (12-20); Aspartate Amino Transferase 20 U/L (5-37); Bilirubin Total 0.7 mg/dL (0.0-1.0); Blood Urea Nitrogen 29 mg/dL (9-16); Calcium 8.6 mg/dL (8.4-10.2); Carbon Dioxide 25 mmol/L (22-29); Chloride 109 mmol/L (96-108); Estimated Glomerular Filt Rate 37; Glucose Fasting 102 mg/dL (60-99); Phosphorus 3.4 mg/dL (2.7-4.5); Potassium 4.1 mmol/L (3.3-5.1); Sodium 143 mmol/L (135-145); Total Protein 5.6 g/dL (6.5-8.0)
[2021-10-15 09:11] LABS: Tacrolimus Prograf 4.2 mcg/L
== END 2021-10-14 08:51 | disposition home or self-care (01) ==
LOC: HO.10HDLR 08:50
PROVIDERS: Absent Provider Family Medicine; Referring Provider Internal Medicine Nephrology; Visit Provider Internal Medicine Nephrology
DX: Z94.0 Kidney transplant status (principal); Z79.899 Other long term (current) drug therapy
CPT/HCPCS: 36415; 80053; 80197; 83735; 84100; 85025

== ENCOUNTER 2021-11-12 09:15 | Outpatient (REF) | payer MEDICARE, SELFPAY ==
[2021-11-12 10:18] LABS: MANUAL DIFF FLAG NO
[2021-11-12 10:32] LABS: Basophils Absolute Auto 0.1 X10*3/uL (0.0-0.2); Basophils Percent Auto 0.8 % (0-2); Eosinophils Absolute Auto 0.4 X10*3/uL (0.0-0.4); Eosinophils Percent Auto 6.5 % (0-4); Hematocrit 34.8 % (42.0-52.0); Hemoglobin 11.3 g/dl (14.0-18.0); Imm Gran Abs Auto 0.01 X10*3/uL (0.00-0.03); Imm Gran Pct Auto 0.2 % (0.0-0.4); Lymphocytes Absolute Auto 1.2 X10*3/uL (1.2-4.9); Mean Corpuscular HGB Conc 32.5 g/dl (31.0-36.0); Mean Corpuscular Hemoglobin 34.6 pg (27.0-33.0); Mean Corpuscular Volume 106.4 fL (80.0-98.0); Mean Platelet Volume 11.5 fL (9.4-12.4); Monocytes Absolute Auto 0.7 X10*3/uL (0.1-1.2); Monocytes Percent Auto 10.1 % (2-11); Neutrophils Absolute Auto 4.1 x10*3/uL (2.0-8.3); Neutrophils Percent Auto 64.4 % (45-73); Platelet Count 159 X10*3/uL (160-400); Red Blood Count 3.27 X10*6/uL (4.60-5.80); Red Cell Distribution Width 13.6 % (11.0-16.0); White Blood Count 6.4 X10*3/uL (4.8-10.8)
[2021-11-12 11:02] LABS: Alanine Aminotransferase 12 U/L (0-40); Albumin Level 3.1 g/dL (3.5-5.0); Alkaline Phosphatase 38 U/L (39-117); Anion Gap 12 (12-20); Aspartate Amino Transferase 21 U/L (5-37); Bilirubin Total 0.7 mg/dL (0.0-1.0); Blood Urea Nitrogen 32 mg/dL (9-16); Calcium 8.4 mg/dL (8.4-10.2); Carbon Dioxide 28 mmol/L (22-29); Chloride 107 mmol/L (96-108); Estimated Glomerular Filt Rate 38; Glucose Random 128 mg/dL (60-115); Magnesium 1.7 mg/dL (1.6-2.6); Phosphorus 3.5 mg/dL (2.7-4.5); Potassium 4.1 mmol/L (3.3-5.1); Sodium 143 mmol/L (135-145); Total Protein 5.3 g/dL (6.5-8.0)
[2021-11-13 10:06] LABS: Tacrolimus Prograf 3.8 mcg/L
== END 2021-11-12 09:16 | disposition home or self-care (01) ==
LOC: HO.10HDLR 09:15
PROVIDERS: Absent Provider Family Medicine; Referring Provider Internal Medicine Nephrology; Visit Provider Internal Medicine Nephrology
DX: Z94.0 Kidney transplant status (principal); Z79.899 Other long term (current) drug therapy
CPT/HCPCS: 36415; 80053; 80197; 83735; 84100; 85025

== ENCOUNTER 2021-12-10 09:22 | Outpatient (REF) | payer MEDICARE, SELFPAY ==
[2021-12-10 10:24] LABS: MANUAL DIFF FLAG NO
[2021-12-10 10:28] LABS: Basophils Absolute Auto 0.1 X10*3/uL (0.0-0.2); Basophils Percent Auto 0.7 % (0-2); Eosinophils Absolute Auto 0.2 X10*3/uL (0.0-0.4); Hematocrit 34.3 % (42.0-52.0); Hemoglobin 11.2 g/dl (14.0-18.0); Imm Gran Abs Auto 0.01 X10*3/uL (0.00-0.03); Imm Gran Pct Auto 0.1 % (0.0-0.4); Lymphocytes Absolute Auto 0.8 X10*3/uL (1.2-4.9); Lymphocytes Percent Auto 11.3 % (20-40); Mean Corpuscular HGB Conc 32.7 g/dl (31.0-36.0); Mean Corpuscular Hemoglobin 34.6 pg (27.0-33.0); Mean Corpuscular Volume 105.9 fL (80.0-98.0); Mean Platelet Volume 11.8 fL (9.4-12.4); Monocytes Absolute Auto 0.8 X10*3/uL (0.1-1.2); Monocytes Percent Auto 11.7 % (2-11); Neutrophils Absolute Auto 5.1 x10*3/uL (2.0-8.3); Neutrophils Percent Auto 73.2 % (45-73); Platelet Count 141 X10*3/uL (160-400); Red Blood Count 3.24 X10*6/uL (4.60-5.80)
[2021-12-10 11:04] LABS: Alanine Aminotransferase 13 U/L (0-40); Albumin Level 3.1 g/dL (3.5-5.0); Alkaline Phosphatase 41 U/L (39-117); Anion Gap 13 (12-20); Aspartate Amino Transferase 18 U/L (5-37); Bilirubin Total 0.7 mg/dL (0.0-1.0); Blood Urea Nitrogen 38 mg/dL (9-16); Calcium 8.7 mg/dL (8.4-10.2); Carbon Dioxide 26 mmol/L (22-29); Chloride 107 mmol/L (96-108); Estimated Glomerular Filt Rate 34; Glucose Random 107 mg/dL (60-115); Phosphorus 3.3 mg/dL (2.7-4.5); Sodium 142 mmol/L (135-145); Total Protein 5.5 g/dL (6.5-8.0)
[2021-12-11 08:12] LABS: Tacrolimus Prograf 5.1 mcg/L
== END 2021-12-10 09:23 | disposition home or self-care (01) ==
LOC: HO.10HDL 09:22
PROVIDERS: Visit Provider Internal Medicine Nephrology
DX: Z94.0 Kidney transplant status (principal); Z79.899 Other long term (current) drug therapy
CPT/HCPCS: 36415; 80053; 80197; 83735; 84100; 85025

== ENCOUNTER 2021-12-31 08:54 | Outpatient (REF) | payer MEDICARE, SELFPAY ==
[2022-01-01 12:18] LABS: Tacrolimus Prograf 4.5 mcg/L
== END 2021-12-31 08:55 | disposition home or self-care (01) ==
LOC: HO.10HDL 08:54
PROVIDERS: Visit Provider Internal Medicine Nephrology
DX: Z94.0 Kidney transplant status (principal); Z79.899 Other long term (current) drug therapy
CPT/HCPCS: 36415; 80197

== ENCOUNTER 2022-02-11 08:30 | Outpatient (REF) | payer MEDICARE, SELFPAY ==
[2022-02-11 10:47] LABS: MANUAL DIFF FLAG NO
[2022-02-11 11:05] LABS: Basophils Absolute Auto 0.1 X10*3/uL (0.0-0.2); Basophils Percent Auto 0.9 % (0-2); Eosinophils Absolute Auto 0.3 X10*3/uL (0.0-0.4); Eosinophils Percent Auto 4.8 % (0-4); Hematocrit 34.1 % (42.0-52.0); Hemoglobin 11.1 g/dl (14.0-18.0); Imm Gran Abs Auto 0.01 X10*3/uL (0.00-0.03); Imm Gran Pct Auto 0.2 % (0.0-0.4); Lymphocytes Percent Auto 17.4 % (20-40); Mean Corpuscular HGB Conc 32.6 g/dl (31.0-36.0); Mean Corpuscular Hemoglobin 33.8 pg (27.0-33.0); Mean Platelet Volume 11.4 fL (9.4-12.4); Monocytes Absolute Auto 0.6 X10*3/uL (0.1-1.2); Neutrophils Absolute Auto 3.8 x10*3/uL (2.0-8.3); Neutrophils Percent Auto 66.7 % (45-73); Platelet Count 182 X10*3/uL (160-400); Red Blood Count 3.28 X10*6/uL (4.60-5.80); Red Cell Distribution Width 13.6 % (11.0-16.0); White Blood Count 5.6 X10*3/uL (4.8-10.8)
[2022-02-11 11:21] LABS: Alanine Aminotransferase 15 U/L (0-40); Alkaline Phosphatase 47 U/L (39-117); Anion Gap 11 (12-20); Aspartate Amino Transferase 20 U/L (5-37); Bilirubin Total 0.5 mg/dL (0.0-1.0); Blood Urea Nitrogen 38 mg/dL (9-16); Calcium 8.5 mg/dL (8.4-10.2); Carbon Dioxide 27 mmol/L (22-29); Chloride 109 mmol/L (96-108); Estimated Glomerular Filt Rate 37; Glucose Random 104 mg/dL (60-115); Magnesium 1.9 mg/dL (1.6-2.6); Phosphorus 3.8 mg/dL (2.7-4.5); Potassium 4.5 mmol/L (3.3-5.1); Sodium 142 mmol/L (135-145); Total Protein 5.6 g/dL (6.5-8.0)
== END 2022-02-11 08:31 | disposition home or self-care (01) ==
LOC: HO.10HDL 08:30
PROVIDERS: Visit Provider Internal Medicine Nephrology
DX: Z94.0 Kidney transplant status (principal)
CPT/HCPCS: 36415; 80053; 83735; 84100; 85025

== ENCOUNTER 2022-03-11 08:35 | Outpatient (REF) | payer MEDICARE, SELFPAY ==
[2022-03-11 10:11] LABS: MANUAL DIFF FLAG NO
[2022-03-11 10:17] LABS: Basophils Percent Auto 0.7 % (0-2); Eosinophils Absolute Auto 0.2 X10*3/uL (0.0-0.4); Eosinophils Percent Auto 3.9 % (0-4); Hematocrit 34.4 % (42.0-52.0); Hemoglobin 11.1 g/dl (14.0-18.0); Imm Gran Abs Auto 0.01 X10*3/uL (0.00-0.03); Imm Gran Pct Auto 0.2 % (0.0-0.4); Lymphocytes Absolute Auto 1.1 X10*3/uL (1.2-4.9); Lymphocytes Percent Auto 17.6 % (20-40); Mean Corpuscular HGB Conc 32.3 g/dl (31.0-36.0); Mean Corpuscular Hemoglobin 33.4 pg (27.0-33.0); Mean Corpuscular Volume 103.6 fL (80.0-98.0); Mean Platelet Volume 11.5 fL (9.4-12.4); Monocytes Absolute Auto 0.6 X10*3/uL (0.1-1.2); Monocytes Percent Auto 10.4 % (2-11); Neutrophils Absolute Auto 4.1 x10*3/uL (2.0-8.3); Neutrophils Percent Auto 67.2 % (45-73); Platelet Count 159 X10*3/uL (160-400); Red Blood Count 3.32 X10*6/uL (4.60-5.80); White Blood Count 6.1 X10*3/uL (4.8-10.8)
[2022-03-11 10:28] LABS: Alanine Aminotransferase 15 U/L (0-40); Albumin Level 3.3 g/dL (3.5-5.0); Alkaline Phosphatase 50 U/L (39-117); Anion Gap 10 (12-20); Aspartate Amino Transferase 21 U/L (5-37); Bilirubin Total 0.6 mg/dL (0.0-1.0); Blood Urea Nitrogen 38 mg/dL (9-16); Calcium 8.5 mg/dL (8.4-10.2); Carbon Dioxide 29 mmol/L (22-29); Chloride 108 mmol/L (96-108); Estimated Glomerular Filt Rate 38; Glucose Random 96 mg/dL (60-115); Phosphorus 3.6 mg/dL (2.7-4.5); Potassium 3.9 mmol/L (3.3-5.1); Sodium 143 mmol/L (135-145); Total Protein 5.8 g/dL (6.5-8.0)
[2022-03-12 18:27] LABS: Tacrolimus Prograf 3.8 mcg/L
== END 2022-03-11 08:36 | disposition home or self-care (01) ==
LOC: HO.10HDLR 08:35
PROVIDERS: Absent Provider Family Medicine; Referring Provider Internal Medicine Nephrology; Visit Provider Internal Medicine Nephrology
DX: Z94.0 Kidney transplant status (principal); Z79.899 Other long term (current) drug therapy
CPT/HCPCS: 36415; 80053; 80197; 83735; 84100; 85025

== ENCOUNTER 2022-03-30 08:37 | Outpatient (REF) | payer MEDICARE, SELFPAY ==
[2022-03-30 10:32] LABS: MANUAL DIFF FLAG NO
[2022-03-30 10:45] LABS: Basophils Percent Auto 0.7 % (0-2); Eosinophils Absolute Auto 0.3 X10*3/uL (0.0-0.4); Eosinophils Percent Auto 4.3 % (0-4); Hematocrit 33.8 % (42.0-52.0); Hemoglobin 10.8 g/dl (14.0-18.0); Imm Gran Abs Auto 0.01 X10*3/uL (0.00-0.03); Imm Gran Pct Auto 0.2 % (0.0-0.4); Lymphocytes Percent Auto 16.7 % (20-40); Mean Corpuscular Hemoglobin 32.9 pg (27.0-33.0); Mean Platelet Volume 11.2 fL (9.4-12.4); Monocytes Absolute Auto 0.7 X10*3/uL (0.1-1.2); Monocytes Percent Auto 10.9 % (2-11); Neutrophils Absolute Auto 4.1 x10*3/uL (2.0-8.3); Neutrophils Percent Auto 67.2 % (45-73); Platelet Count 157 X10*3/uL (160-400); Red Blood Count 3.28 X10*6/uL (4.60-5.80); White Blood Count 6.1 X10*3/uL (4.8-10.8)
[2022-03-30 10:54] LABS: Alanine Aminotransferase 13 U/L (0-40); Albumin Level 3.2 g/dL (3.5-5.0); Alkaline Phosphatase 48 U/L (39-117); Anion Gap 11 (12-20); Aspartate Amino Transferase 19 U/L (5-37); Bilirubin Total 0.6 mg/dL (0.0-1.0); Blood Urea Nitrogen 28 mg/dL (9-16); Calcium 8.4 mg/dL (8.4-10.2); Carbon Dioxide 27 mmol/L (22-29); Chloride 108 mmol/L (96-108); Estimated Glomerular Filt Rate 42; Glucose Fasting 89 mg/dL (60-99); Magnesium 1.8 mg/dL (1.6-2.6); Phosphorus 3.4 mg/dL (2.7-4.5); Potassium 3.9 mmol/L (3.3-5.1); Sodium 142 mmol/L (135-145); Total Protein 5.5 g/dL (6.5-8.0)
[2022-04-01 09:56] LABS: Tacrolimus Prograf 4.1 mcg/L
== END 2022-03-30 08:38 | disposition home or self-care (01) ==
LOC: HO.10HDLR 08:37
PROVIDERS: Absent Provider Family Medicine; Referring Provider Internal Medicine Nephrology; Visit Provider Internal Medicine Nephrology
DX: Z94.0 Kidney transplant status (principal); Z79.899 Other long term (current) drug therapy
CPT/HCPCS: 36415; 80053; 80197; 83735; 84100; 85025

== ENCOUNTER 2022-04-29 09:10 | Outpatient (REF) | payer MEDICARE, SELFPAY ==
[2022-04-29 10:38] LABS: MANUAL DIFF FLAG NO
[2022-04-29 10:43] LABS: Basophils Absolute Auto 0.1 X10*3/uL (0.0-0.2); Basophils Percent Auto 0.8 % (0-2); Eosinophils Absolute Auto 0.3 X10*3/uL (0.0-0.4); Eosinophils Percent Auto 3.8 % (0-4); Hematocrit 33.3 % (42.0-52.0); Hemoglobin 10.9 g/dl (14.0-18.0); Imm Gran Abs Auto 0.04 X10*3/uL (0.00-0.03); Imm Gran Pct Auto 0.6 % (0.0-0.4); Mean Corpuscular HGB Conc 32.7 g/dl (31.0-36.0); Mean Corpuscular Hemoglobin 34.1 pg (27.0-33.0); Mean Corpuscular Volume 104.1 fL (80.0-98.0); Mean Platelet Volume 11.3 fL (9.4-12.4); Monocytes Absolute Auto 0.6 X10*3/uL (0.1-1.2); Monocytes Percent Auto 9.2 % (2-11); Neutrophils Absolute Auto 4.7 x10*3/uL (2.0-8.3); Neutrophils Percent Auto 70.6 % (45-73); Platelet Count 180 X10*3/uL (160-400); Red Cell Distribution Width 13.7 % (11.0-16.0); White Blood Count 6.6 X10*3/uL (4.8-10.8)
[2022-04-29 10:58] LABS: Alanine Aminotransferase 12 U/L (0-40); Albumin Level 3.1 g/dL (3.5-5.0); Alkaline Phosphatase 45 U/L (39-117); Anion Gap 14 (12-20); Aspartate Amino Transferase 18 U/L (5-37); Bilirubin Total 0.6 mg/dL (0.0-1.0); Blood Urea Nitrogen 28 mg/dL (9-16); Calcium 8.1 mg/dL (8.4-10.2); Carbon Dioxide 26 mmol/L (22-29); Chloride 106 mmol/L (96-108); Estimated Glomerular Filt Rate 42; Glucose Random 125 mg/dL (60-115); Magnesium 1.7 mg/dL (1.6-2.6); Sodium 142 mmol/L (135-145); Total Protein 5.7 g/dL (6.5-8.0)
[2022-04-29 14:47] LABS: Phosphorus 3.3 mg/dL (2.7-4.5)
[2022-04-30 18:23] LABS: Tacrolimus Prograf 4.1 mcg/L
== END 2022-04-29 09:11 | disposition home or self-care (01) ==
LOC: HO.10HDLR 09:10
PROVIDERS: Absent Provider Family Medicine; Referring Provider Internal Medicine Nephrology; Visit Provider Internal Medicine Nephrology
DX: Z94.0 Kidney transplant status (principal); Z79.899 Other long term (current) drug therapy
CPT/HCPCS: 36415; 80053; 80197; 83735; 84100; 85025

== ENCOUNTER 2022-05-12 11:16 | Emergency (ER) | payer MEDICARE, SELFPAY ==
--- NOTE | ~2022-05-12 | CT_ITS ---
EXAMINATION: CT HEAD WITHOUT CONTRAST CLINICAL INFORMATION: Fall COMPARISON: None TECHNIQUE: Contiguous axial imaging was performed from the skull base to vertex without intravenous administration of contrast. This CT examination was performed using dose optimization techniques as appropriate, variously including the following: *Automated exposure control *Adjustment of mA and/or kV according to patient size (this includes techniques or standardized protocols for targeted exams where dose is matched to indication/reason for exam; i.e. extremities or head) *Use of iterative reconstruction technique DLP: 649 mGy-cm FINDINGS: There is no acute intra-axial, extra-axial bleed, masses or midline shift. There is no acute infarction evolution. The lateral ventricles are symmetrical in size and configuration without enlargement. There is diffuse periventrical hypodensities in both cerebral hemispheres suggestive of chronic small vessel ischemic changes. There is no edema. A prominent cisterna magna is noted. Bone windows reveal no calvarial abnormality. There is no scalp abnormality either. The paranasal sinuses and mastoid air cells are well-aerated. CT/CT head/brain wo con IMPRESSION: No acute intracranial process. Age-related cerebral volume loss with chronic small vessel ischemic changes.
--- NOTE | ~2022-05-12 | XR_ITS ---
EXAMINATION: CHEST AND RIGHT KNEE CLINICAL INFORMATION: Fall. COMPARISON: Chest 07/16/2020 TECHNIQUE: Chest one view. Right knee 4 views. FINDINGS: Chest: The lungs are well-expanded with scarring or atelectasis in both lung bases no acute pneumonic process. No pleural effusion. The heart size and pulmonary vascularity is normal. Suspect bilateral basilar scarring and/or atelectasis, similar to previous study Right knee: There is air-fluid level in the right suprapatellar joint suggestive intra-articular fracture. There is a nondisplaced left proximal tibial fracture extending to the intercondylar eminence of the tibial plateau. No additional fracture seen. XR/XR knee RT 3V IMPRESSION: Bibasilar scarring or atelectasis. No acute pneumonic process seen. Nondisplaced vertical fracture proximal tibia with likely intra-articular extension resulting in air-fluid level in the suprapatellar bursa.
--- NOTE | ~2022-05-12 | XR_ITS ---
EXAMINATION: CHEST AND RIGHT KNEE CLINICAL INFORMATION: Fall. COMPARISON: Chest 07/16/2020 TECHNIQUE: Chest one view. Right knee 4 views. FINDINGS: Chest: The lungs are well-expanded with scarring or atelectasis in both lung bases no acute pneumonic process. No pleural effusion. The heart size and pulmonary vascularity is normal. Suspect bilateral basilar scarring and/or atelectasis, similar to previous study Right knee: There is air-fluid level in the right suprapatellar joint suggestive intra-articular fracture. There is a nondisplaced left proximal tibial fracture extending to the intercondylar eminence of the tibial plateau. No additional fracture seen. XR/XR chest 1V IMPRESSION: Bibasilar scarring or atelectasis. No acute pneumonic process seen. Nondisplaced vertical fracture proximal tibia with likely intra-articular extension resulting in air-fluid level in the suprapatellar bursa.
[2022-05-12 11:24] VITALS: BP 133/79; BP 140/77; PULSE 66; PULSE 70; RESP 16; TEMP 36.4; O2SAT 99; BMI 24.0
--- NOTE | 2022-05-12 11:35 | ED_ITS ---
HPI - Fall General Chief Complaint: Fall Stated Complaint: fall Time Seen by Provider: 05/12/22 11:34 Source: patient Mode of arrival: EMS Limitations: no limitations History of Present Illness HPI Narrative: 81 yo male with hx of HTN, lymphedema, s/p renal transplant reports he tripped yesterday going up the stairs resulting in him hitting his R knee and R arm on concrete - he denies head trauma but has abrasion to R eyebrow area from other recent fall - he is not on blood thinners had no LOC and got himself up with a cane right away. He comes in today due to worsening R knee pain complaint: fall Onset (ago): day(s) (1) Fall from: standing Fall witnessed: no Place fall occurred: home Loss of consciousness: none Prolonged down time: no Context: tripped/slipped Location of injury: chest Location of injury - extremities: right: forearm and knee Severity: mild Quality: dull and aching Associated symptoms (after fall): unable to walk and other (abrasions to right forearm) Related Data Home Medications Medication Instructions Recorded Confirmed furosemide 20 mg tablet 2 tab PO BID 05/12/22 05/12/22 pravastatin 40 mg tablet 1 tab PO DAILY 05/12/22 05/12/22 prednisone 2.5 mg tablet 1 tab PO DAILY 05/12/22 05/12/22 sertraline 50 mg tablet 1 tab PO DAILY 05/12/22 05/12/22 tacrolimus 1 mg capsule, 1 cap PO BID 05/12/22 05/12/22 immediate-release Allergies Allergy/AdvReac Type Severity Reaction Status Date / Time No Known Allergies [NKA] Allergy Verified 07/16/20 22:13 Review of Systems Review of Systems: Constitutional : No Fever, No Chills ENT/Mouth : No Ear Pain, No Hoarseness, No sore throat Eyes: No Eye Pain, No Swelling, No Redness, No Foreign Body Cardiovascular : No Chest Pain, No SOB Respiratory : No Cough, No Dyspnea Gastrointestinal : No Nausea, No Vomiting, No Diarrhea, No abdominal Pain Genitourinary : No Dysuria, No Hematuria Musculoskeletal : positive joint pain, No Myalgias, pos Joint Swelling Skin : No Skin lacerations, No rash, pos abrasions Neuro : No Weakness, No Numbness, No Loss of Consciousness, No Dizziness, No Headache Psych : No Anxiety/Panic, No Depression Heme/Lymph: no easy bruising, no Lymphadenopathy Endocrine : No Polyuria, No Polydipsia All other systems reviewed and are negative PMFSH Past Medical History Attestation statement: The following information was validated with the patient. Medical History Hernia Lymphedema Surgical History Kidney transplant recipient Renal transplant recipient Social History Social History Alcohol intake: unknown Patient Tobacco Use Status: Never used Tobacco Use of substances other than those prescribed or required for medical reasons: No Advance Directives: Yes Advance Directives Information Provided: No Advance Directives on File: No Advance Directives Date on File: 07/04/20 Physical Exam Vital Signs: Vital Signs: Last Vital Signs Temp 97.5 F 05/12/22 11:24 Pulse 60 05/12/22 14:26 Resp 18 05/12/22 14:26 BP 177/72 H 05/12/22 14:26 Pulse Ox 99 05/12/22 14:26 O2 Del Method 05/12/22 14:26 BMI result Body Mass Index 24.0 Appearance: Alert. Oriented X3. No acute distress. Eyes: Pupils equal, round and reactive to light. ENT: Pharynx normal. old abrasion and ecchymosis yellowish and purple in nature R sikhism area Neck: Normal inspection. Neck supple. CVS: Normal heart rate and rhythm. Pulses normal. Respiratory: No respiratory distress. Breath sounds normal. Abdomen: Soft and nontender. Skin: Skin warm and dry. Normal skin color. Normal skin turgor. Extremities: 3+ chronic LE edema per patient bilaterally, R knee ttp along marshall la and medial joint line, R arm full ROM but has superficial abrasions to R forearm Neuro: Oriented X 3. No motor deficit. No sensory deficit. Course Course Course Narrative: discussed with orthopedics NWB - place in immobilizer and follow up with - will need rehab Patient placed in physician observation at 308pm. The indication for observation is that the patient needs more time to be placed as he would not be able to use crutches at home given fracture. At this time the patient is well d eveloped well nourished, lungs clear, CV RRR, abd nontender, neuro is intact. Procedures Orthopedic Splinting/Casting Injury #1: Side: right Lower Extremity Injury Location: knee Lower Extremity Immobilizer: knee immobilizer MDM - Fall MDM Narrative Medical decision making narrative: 81 yo male with hx of HTN, lymphedema, s/p renal transplant here with c/o mechanical fall yesterday - at this time will need xrays of R knee, CXR though doubt rib fractures, wound care of R forearm - doubt fracture in that area, basic labs given recent fall last week, CT head given trauma to head last week and another fall yesterday to r/o SDH. Dispo per results and findings. Lab Data Result diagrams: 05/12/22 12:24 05/12/22 12:24 Labs: Lab Results 05/12/22 05/12/22 05/12/22 Range/Units 12:24 12:24 15:26 WBC 11.1 H (4.8-10.8) X10*3/uL RBC 3.03 L (4.60-5.80) X10*6/uL Hgb 10.2 L (14.0-18.0) g/dl Hct 30.9 L (42.0-52.0) % MCV 102.0 H (80.0-98.0) fL MCH 33.7 H (27.0-33.0) pg MCHC 33.0 (31.0-36.0) g/dl RDW 14.2 (11.0-16.0) % Plt Count 129 L D (160-400) X10*3/uL MPV 10.3 (9.4-12.4) fL Immature Gran % (Auto) 0.4 (0.0-0.4) % Neut % (Auto) 86.8 H (45-73) % Lymph % (Auto) 6.0 L (20-40) % [place] % (Auto) 4.4 (2-11) % Eos % (Auto) 2.1 (0-4) % Baso % (Auto) 0.3 (0-2) % Lymph # (Auto) 0.7 L (1.2-4.9) X10*3/uL [place] # (Auto) 0.5 (0.1-1.2) X10*3/uL Eos # (Auto) 0.2 (0.0-0.4) X10*3/uL Baso # (Auto) 0.0 (0.0-0.2) X10*3/uL Abs Immat Gran (auto) 0.04 H (0.00-0.03) X10*3/uL Absolute Neuts (auto) 9.7 H (2.0-8.3) x10*3/uL Absolute Nucleated RBC 0.000 (0.0-0.012) X10*3/uL Nucleated RBC % (auto) 0.0 (0.0-0.2) /100WBC Sodium 144 (135-145) mmol/L Potassium 4.2 (3.3-5.1) mmol/L Chloride 108 (96-108) mmol/L Carbon Dioxide 25 (22-29) mmol/L Anion Gap 15 (12-20) BUN 37 H (9-16) mg/dL Creatinine 1.65 H (0.5-1.4) mg/dL Estim Creat Clear Calc 35.6 Estimated GFR 40 Random Glucose 112 (60-115) mg/dL Calcium 8.4 (8.4-10.2) mg/dL COVID-19 (JOHANNA) Negative (Negative) COVID-19 Clin Com See Note Discharge Plan Discharge Clinical Impression: Abrasion Closed tibial fracture Qualifiers: Encounter type: initial encounter Tibia location: proximal Fracture morphology: unspecified fracture morphology Laterality: right Qualified Code(s): S82.101A - Unspecified fracture of upper end of right tibia, initial encounter for closed fracture Patient Disposition: Still a Patient Prescriptions: No Action pravastatin 40 mg tablet 1 tab PO DAILY prednisone 2.5 mg tablet 1 tab PO DAILY furosemide 20 mg tablet 2 tab PO BID sertraline 50 mg tablet 1 tab PO DAILY tacrolimus 1 mg capsule 1 cap PO BID
[2022-05-12 12:27] LABS: MANUAL DIFF FLAG NO
[2022-05-12 12:31] LABS: Basophils Percent Auto 0.3 % (0-2); Eosinophils Absolute Auto 0.2 X10*3/uL (0.0-0.4); Eosinophils Percent Auto 2.1 % (0-4); Hematocrit 30.9 % (42.0-52.0); Hemoglobin 10.2 g/dl (14.0-18.0); Imm Gran Abs Auto 0.04 X10*3/uL (0.00-0.03); Imm Gran Pct Auto 0.4 % (0.0-0.4); Lymphocytes Absolute Auto 0.7 X10*3/uL (1.2-4.9); Mean Corpuscular Hemoglobin 33.7 pg (27.0-33.0); Mean Platelet Volume 10.3 fL (9.4-12.4); Monocytes Absolute Auto 0.5 X10*3/uL (0.1-1.2); Monocytes Percent Auto 4.4 % (2-11); Neutrophils Absolute Auto 9.7 x10*3/uL (2.0-8.3); Neutrophils Percent Auto 86.8 % (45-73); Platelet Count 129 X10*3/uL (160-400); Red Blood Count 3.03 X10*6/uL (4.60-5.80); Red Cell Distribution Width 14.2 % (11.0-16.0); White Blood Count 11.1 X10*3/uL (4.8-10.8)
[2022-05-12 12:41] LABS: Anion Gap 15 (12-20); Blood Urea Nitrogen 37 mg/dL (9-16); Calcium 8.4 mg/dL (8.4-10.2); Carbon Dioxide 25 mmol/L (22-29); Chloride 108 mmol/L (96-108); Creatinine Clr Calc Pharmacy 35.6; Estimated Glomerular Filt Rate 40; Glucose Random 112 mg/dL (60-115); Potassium 4.2 mmol/L (3.3-5.1); Sodium 144 mmol/L (135-145)
[2022-05-12 14:26] VITALS: BP 177/72; PULSE 60; RESP 18; O2SAT 99
[2022-05-12 15:45] LABS: COVID-19 Test Negative (Negative); IDNOW Serial# 16C4AD1C
--- NOTE | 2022-05-12 16:06 | PHA.MEDREC ---
Pharmacy Consult ? Medication Reconciliation Pharmacy has completed the medication reconciliation. Patient was a poor historian, Told me all scripts are picked up at [facility]. Called both pharmacies to confirm.
[2022-05-12 16:59] VITALS: BP 168/70; PULSE 67; RESP 17; O2SAT 96
[2022-05-12 19:39] VITALS: BP 137/64; PULSE 68; RESP 16; O2SAT 93
[2022-05-12] MEDS: oxyCODONE HCl Immed Release 5 MG TABLET PO (21:30)
[2022-05-12 21:32] VITALS: BP 142/47; PULSE 86; RESP 14; O2SAT 94
--- NOTE | 2022-05-12 21:40 | PC.NURSE ---
Pt. c/o pain in the right knee. Pt. medicated per NOV. Pt now resting comfortably in bed.
--- NOTE | 2022-05-13 00:49 | PC.NURSE ---
report received from ED RN. pt in bed 10 ed overflow unit - placed in hospital bed, cleaned up with new hospital gown and warm blankets given. call josé within reach. no current complaints.will continue to monitor
[2022-05-13 03:49] VITALS: BP 133/57; PULSE 90; RESP 18; TEMP 36.5; O2SAT 93
[2022-05-13] MEDS: Furosemide 40 MG TABLET PO (10:12)
[2022-05-13] MEDS: predniSONE 2.5 MG TABLET PO (10:12)
[2022-05-13] MEDS: Sertraline HCL 50 MG TABLET PO (10:12)
[2022-05-13] MEDS: Tacrolimus 1 MG CAPSULE PO (10:16)
[2022-05-13] MEDS: Pravastatin Sodium 40 MG TABLET PO (10:16)
--- NOTE | 2022-05-13 11:44 | MHC.CM.ED ---
Addendum entered by Jazzy Burrows 05/13/22 15:25: [facility] has not been able to offer a bed at this time. Referral broadcasted in [facility]. [facility] is able to offer a bed. Patient accepts bed. Original Note: Received case management consult overnight. Patient came to ER due to a fall. Patient found to have a tibia fracture and needs to be non-weight bearing. Physical therapy eval completed. Short term rehab is recommended. Met with patient in regards to discharge planning. Patient lives with his , has a cane/walker for mobility when needed and had no services prior to coming to the hospital. Patient received 2 Moderna vaccines. PCP verified. Copy of HCP obtained from [facility]. Patient originally was declining short term rehab and wanted to go home with services. FRANCO Damico spoke with patient in regards to discharge planning. She doesn't feel patient will be able to safely home non-weight bearing. Patient is now agreeable to referral to [facility]. Referral made via [facility]. Continue to monitor for d/c needs.
--- NOTE | 2022-05-13 12:30 | PC.NURSE ---
Pt is A&Ox4, offers no complaints of pain at this time, he is aware he can have pain medication when needed and is encouraged to stay ahead of the pain. Pt worked with PT this morning, STR suggested, pt is aware and offered suggestions of places he would like to go. Case management working on placement at this time. Call josé within reach. Will continue to monitor.
--- NOTE | 2022-05-13 15:37 | MHC.CM.ED ---
Patient accepts bed at [facility] on [address]. Patient can leave at 530pm. [facility] booked. [facility] with chart. Patient, Mesha RN and Margaux GAMEZ aware. Continue to monitor for d/c needs.
[2022-05-13 16:40] VITALS: BP 123/57; PULSE 74; RESP 16; O2SAT 98
== END 2022-05-13 18:53 | disposition skilled nursing facility (03) ==
PROVIDERS: Emergency Provider Emergency Medicine; PCP Family Medicine
DX: M25.561 Pain in right knee (principal); R51.9 Headache, unspecified; R07.89 Other chest pain; Z20.822 Contact with and (suspected) exposure to COVID-19; Z79.899 Other long term (current) drug therapy
CPT/HCPCS: 36415; 70450; 71045; 73562; 80048; 85025; 87635; 97162; 99284; 99285

== ENCOUNTER 2022-06-04 | Outpatient (REF) | payer MEDICARE, SELFPAY | END 2022-06-04 00:01 | disposition home or self-care (01) | LOC: HO.HOSX | PROVIDERS: Visit Provider Physician Assistant | DX: Z13.89 Encounter for screening for other disorder (principal) ==

== ENCOUNTER 2022-06-11 07:54 | Outpatient (REF) | payer MEDICARE, SELFPAY | END 2022-06-11 07:55 | disposition home or self-care (01) | LOC: HO.HOSX 07:54 | PROVIDERS: Visit Provider Physician Assistant | DX: Z13.89 Encounter for screening for other disorder (principal) ==

== ENCOUNTER 2022-06-22 12:29 | Outpatient (REF) | payer MEDICARE, SELFPAY ==
--- NOTE | ~2022-06-22 | XR_ITS ---
EXAMINATION: XR KNEE, RIGHT CLINICAL INFORMATION: Pain COMPARISON: 05/12/2022 TECHNIQUE: 2 views of the right knee. FINDINGS: The proximal tibial fracture is not clearly visualized on this study, with stabilization external hardware obscuring the view. Mild narrowing at the medial and lateral compartment joint spaces. Small tricompartmental marginal osteophytes. No significant joint effusion. Vascular calcifications are noted. XR/XR knee RT 2V IMPRESSION: Mild degenerative changes. Unchanged alignment of the proximal tibia with the fracture are not clearly visualized on this study.
== END 2022-06-22 12:30 | disposition home or self-care (01) ==
LOC: HO.HOSX 12:29
PROVIDERS: Visit Provider Physician Assistant
DX: S82.101A Unspecified fracture of upper end of right tibia, initial encounter for closed fracture (principal)
CPT/HCPCS: 73560; 99202

== ENCOUNTER 2022-07-14 14:28 | Emergency (ER) | payer MEDICARE, SELFPAY ==
[2022-07-14 15:03] VITALS: BP 121/69; PULSE 95; O2SAT 99; BMI 28.2
[2022-07-14 16:34] VITALS: BP 132/65; PULSE 77; RESP 18; TEMP 36.4; O2SAT 100
--- NOTE | 2022-07-14 18:00 | ED_ITS ---
HPI - General Adult General Chief complaint: Failure to Thrive Stated complaint: unable to transfer self post weak & pain old fall Time Seen by Provider: 07/14/22 15:35 Source: patient and EMS Mode of arrival: EMS Limitations: no limitations History of Present Illness HPI narrative: Patient comes to the emergency room complaining of weakness. Patient was discharged yesterday from short-term rehab. Patient was therefore a tibia fracture. Patient states that he is in no pain. Patient was discharged yesterday from the facility and went back home. Patient states that the 1st day he was doing well, but this morning, trying to transfer from his wheelchair and trying to do his daily activities, patient was unable to do so, patient was too weak. Patient states that at home he lives with his who is older than him and has also several health issues. Patient states that he is unable to stay at home and is requesting more physical therapy to get stronger. Related Data Home Medications Medication Instructions Recorded Confirmed furosemide 20 mg tablet 2 tab PO BID 05/12/22 05/12/22 pravastatin 40 mg tablet 1 tab PO DAILY 05/12/22 05/12/22 prednisone 2.5 mg tablet 1 tab PO DAILY 05/12/22 05/12/22 sertraline 50 mg tablet 1 tab PO DAILY 05/12/22 05/12/22 tacrolimus 1 mg capsule, 1 cap PO BID 05/12/22 05/12/22 immediate-release Previous Rx's Medication Instructions Recorded oxycodone 5 mg tablet 5 mg PO Q6H PRN pain #14 tabs 05/13/22 Allergies Allergy/AdvReac Type Severity Reaction Status Date / Time No Known Allergies [NKA] Allergy Verified 07/16/20 22:13 Review of Systems Review of Systems: Constitutional : No Weight loss, No Fever, No Chills, No Night Sweats, No Fatigue, No Malaise, complaining of generalized weakness ENT/Mouth : No Hearing loss, No Ear Pain, No Nasal Congestion, No Sinus Pain, No Hoarseness, No sore throat, No Rhinorrhea, No Swallowing Difficulty Eyes: No Eye Pain, No Swelling, No Redness, No Foreign Body, No Discharge, No Vision Changes Cardiovascular : No Chest Pain, No SOB, No Dyspnea on Exertion, No Orthopnea, No Edema, No Palpitations Respiratory : No Cough, No Sputum, No Wheezing, No Smoke Exposure, No Dyspnea Gastrointestinal : No Nausea, No Vomiting, No Diarrhea, No Constipation, No abdominal Pain, No Hematochezia, No Melena Genitourinary : no irregular bleeding, No Dysuria, No Urinary Frequency, No Hematuria, No Urinary Incontinence, No Urgency, No Flank Pain, No Urinary Flow Changes, No Hesitancy Musculoskeletal : No joint pain, No Myalgias, No Joint Swelling Skin : No Skin Lesions, No rash Neuro : No Weakness, No Numbness, No Paresthesias, No Loss of Consciousness, No Dizziness, No Headache Psych : No Anxiety/Panic, No Depression, No SI/HI/AH/VH, No Social Issues, Heme/Lymph: No Bruising, No Bleeding,No Lymphadenopathy Endocrine : No Polyuria, No Polydipsia, No Temperature Intolerance [facility] Past Medical History Medical History Hernia Lymphedema Surgical History Kidney transplant recipient Renal transplant recipient Social History Social History Alcohol intake: unknown Patient Tobacco Use Status: Former Tobacco user Use of substances other than those prescribed or required for medical reasons: No Advance Directives: Yes Advance Directives on File: Yes Advance Directives Date on File: 05/13/22 Physical Exam ED Vital Signs: Vital Signs - 24 hr 07/14/22 16:34 07/14/22 16:34 Temperature 97.6 F Pulse Rate 77 Respiratory Rate 18 Blood Pressure 132/65 Pulse Oximetry 100 100 Oxygen Delivery Method Room Air Room Air BMI result Body Mass Index 28.2 Const Other: Appearance: Alert. Oriented X3. No acute distress. Eyes: Pupils equal, round and reactive to light. ENT: Pharynx normal. Neck: Normal inspection. Neck supple. No lymph nodes noted. No crepitus CVS: Normal heart rate and rhythm. Pulses normal. Normal S1 and S2 Respiratory: No respiratory distress. Breath sounds normal. No Wheezing. No rales Abdomen: Soft and nontender. No rigidity. No distention. Skin: Skin warm and dry. Normal skin color. Normal skin turgor. Extremities: No lower extremity edema. Right lower extremity in a boot Neuro: Oriented X 3. No motor deficit. No sensory deficit. Moving all extre mities. No slurred speech. CN 2 through 12 grossly intact Psych: calm, cooperative, normal affect Course Course Course Narrative: We will obtain basic lab work, pending. Case management and physical therapy consult have been requested to evaluate the patient, likely to take place tomorrow morning. Patient's blood work is at baseline, no acute findings, creatinine elevated but at baseline as well. Urinalysis is pending. His management and physical therapy will see the patient the morning. Physician observation started at 20:40 sign out given to Dr. Cummins Medical Decision Making Lab Data Result diagrams: 07/14/22 20:17 07/14/22 20:17 Labs: Lab Results 07/14/22 07/14/22 07/14/22 Range/Units 20:17 20:17 20:17 WBC 8.2 (4.8-10.8) X10*3/uL RBC 3.62 L (4.60-5.80) X10*6/uL Hgb 11.4 L (14.0-18.0) g/dl Hct 34.8 L (42.0-52.0) % MCV 96.1 (80.0-98.0) fL MCH 31.5 (27.0-33.0) pg MCHC 32.8 (31.0-36.0) g/dl RDW 15.1 (11.0-16.0) % Plt Count 286 D (160-400) X10*3/uL MPV 9.6 (9.4-12.4) fL Immature Gran % (Auto) 0.2 (0.0-0.4) % Neut % (Auto) 71.2 (45-73) % Lymph % (Auto) 14.9 L (20-40) % [place] % (Auto) 8.9 (2-11) % Eos % (Auto) 4.2 H (0-4) % Baso % (Auto) 0.6 (0-2) % Lymph # (Auto) 1.2 (1.2-4.9) X10*3/uL [place] # (Auto) 0.7 (0.1-1.2) X10*3/uL Eos # (Auto) 0.4 (0.0-0.4) X10*3/uL Baso # (Auto) 0.1 (0.0-0.2) X10*3/uL Abs Immat Gran (auto) 0.02 (0.00-0.03) X10*3/uL Absolute Neuts (auto) 5.9 (2.0-8.3) x10*3/uL Absolute Nucleated RBC 0.000 (0.0-0.012) X10*3/uL Nucleated RBC % (auto) 0.0 (0.0-0.2) /100WBC Sodium 141 (135-145) mmol/L Potassium 3.7 (3.3-5.1) mmol/L Chloride 105 (96-108) mmol/L Carbon Dioxide 25 (22-29) mmol/L Anion Gap 15 (12-20) BUN 37 H (9-16) mg/dL Creatinine 1.59 H (0.5-1.4) mg/dL Estim Creat Clear Calc 34.8 Estimated GFR 42 Random Glucose 120 H (60-115) mg/dL Calcium 8.7 (8.4-10.2) mg/dL Total Bilirubin 0.5 (0.0-1.0) mg/dL Direct Bilirubin 0.2 (0.0-0.5) mg/dL AST 22 (5-37) U/L ALT 22 (0-40) U/L Alkaline Phosphatase 65 D (39-117) U/L Total Protein 6.0 L (6.5-8.0) g/dL Albumin 2.9 L (3.5-5.0) g/dL COVID-19 (JOHANNA) Negative (Negative) COVID-19 Clin Com See Note Discharge Plan Discharge Clinical Impression: Weakness Patient Disposition: Still a Patient Prescriptions: No Action pravastatin 40 mg tablet 1 tab PO DAILY prednisone 2.5 mg tablet 1 tab PO DAILY furosemide 20 mg tablet 2 tab PO BID sertraline 50 mg tablet 1 tab PO DAILY tacrolimus 1 mg capsule 1 cap PO BID oxycodone 5 mg tablet 5 mg PO Q6H PRN (Reason: pain) Qty: 14 0RF Rx Instructions: Partial Fill upon patient request.
[2022-07-14 20:21] LABS: MANUAL DIFF FLAG NO
[2022-07-14 20:25] LABS: Basophils Absolute Auto 0.1 X10*3/uL (0.0-0.2); Basophils Percent Auto 0.6 % (0-2); Eosinophils Absolute Auto 0.4 X10*3/uL (0.0-0.4); Eosinophils Percent Auto 4.2 % (0-4); Hematocrit 34.8 % (42.0-52.0); Hemoglobin 11.4 g/dl (14.0-18.0); Imm Gran Abs Auto 0.02 X10*3/uL (0.00-0.03); Imm Gran Pct Auto 0.2 % (0.0-0.4); Lymphocytes Absolute Auto 1.2 X10*3/uL (1.2-4.9); Lymphocytes Percent Auto 14.9 % (20-40); Mean Corpuscular HGB Conc 32.8 g/dl (31.0-36.0); Mean Corpuscular Hemoglobin 31.5 pg (27.0-33.0); Mean Corpuscular Volume 96.1 fL (80.0-98.0); Mean Platelet Volume 9.6 fL (9.4-12.4); Monocytes Absolute Auto 0.7 X10*3/uL (0.1-1.2); Monocytes Percent Auto 8.9 % (2-11); Neutrophils Absolute Auto 5.9 x10*3/uL (2.0-8.3); Neutrophils Percent Auto 71.2 % (45-73); Platelet Count 286 X10*3/uL (160-400); Red Blood Count 3.62 X10*6/uL (4.60-5.80); Red Cell Distribution Width 15.1 % (11.0-16.0); White Blood Count 8.2 X10*3/uL (4.8-10.8)
--- NOTE | 2022-07-14 20:31 | MHC.CM.ED ---
CM met with patient at request of Dr. Fontanez. Pt was discharged from [facility] yesterday. Was seen by Rachell LUNA today. Pt unable to get out of wheelchair. Very weak. Had tibia fx. Came to ED. Pt a7ox3. Cachetic looking. States he has lost weight. States is too weak to be at home, as his is older than him, and cannot assist him with W/C transfers. Lives with his . Uses a cane, walker and wheelchair. Labs are pending. Vax x2/boosted/Moderna. Pt is requesting STR. PT pending. Pt requests not to return to [facility]. States the food is bad and they do not have enough help there. Agreeable to local referrals. Pt is a , but has no VA services and no benefits. CM called and spoke with /HCP Nery Garduno ([phone]). HCP on file. Nery agrees that pt needs more rehab and tells CM that the visiting nurse did not think he should have come home yet. D/C plan: STR. Local referrals placed. CM will follow for discharge planning.
[2022-07-14 20:37] LABS: COVID-19 Test Negative (Negative); IDNOW Serial# 16C4AD1C
[2022-07-14 20:40] LABS: Alanine Aminotransferase 22 U/L (0-40); Albumin Level 2.9 g/dL (3.5-5.0); Alkaline Phosphatase 65 U/L (39-117); Anion Gap 15 (12-20); Aspartate Amino Transferase 22 U/L (5-37); Bilirubin Direct 0.2 mg/dL (0.0-0.5); Bilirubin Total 0.5 mg/dL (0.0-1.0); Blood Urea Nitrogen 37 mg/dL (9-16); Calcium 8.7 mg/dL (8.4-10.2); Carbon Dioxide 25 mmol/L (22-29); Chloride 105 mmol/L (96-108); Creatinine Clr Calc Pharmacy 34.8; Estimated Glomerular Filt Rate 42; Glucose Random 120 mg/dL (60-115); Potassium 3.7 mmol/L (3.3-5.1); Sodium 141 mmol/L (135-145)
[2022-07-14 21:25] VITALS: BP 139/77; PULSE 82; RESP 15; TEMP 36.4; O2SAT 100
--- NOTE | 2022-07-14 22:54 | PC.NURSE ---
Pt is aox4. Resting in bed. No apparent distress noted. NSR on monitor with ocassional pvc's. HR 78. Reports no pain at this time. Pt aware of plan of care. Will continue to monitor.
[2022-07-15 02:00] VITALS: BP 139/69; PULSE 59; RESP 17; TEMP 36.4; O2SAT 96
[2022-07-15 05:01] VITALS: BP 127/73; PULSE 74; RESP 16; TEMP 36.4; O2SAT 96
[2022-07-15 06:34] VITALS: BP 157/83; PULSE 63; RESP 17; TEMP 36.8; O2SAT 97
[2022-07-15 07:27] VITALS: BP 141/67; PULSE 75; RESP 18; TEMP 36.4; O2SAT 99
[2022-07-15 08:34] VITALS: BP 141/67; PULSE 75; O2SAT 99
[2022-07-15 09:03] LABS: Appearance Urine Clear; Color Urine Yellow; Glucose Urine UA Negative (Negative); Leukocyte Esterase Urine Negative (Negative); Nitrite Urine Negative (Negative); Specific Gravity - Urine 1.015 (1.005-1.025); Urine Blood Negative (Negative); Urine Ketones Negative (Negative); Urine Protein Negative (Neg-Trace)
--- NOTE | 2022-07-15 10:44 | MHC.CM.ED ---
Addendum entered by Jazzy Yen 07/15/22 12:44: [facility] not able to offer a bed. Patient accepts bed at [facility]. Patient, Moises RN and Marine GAMEZ aware. Patient has multiple questions about arranging LTC. Patient currently owns his home. This 's name is not on the deed. T/W explained patient would need to work with facility's social sciences professor to determine what would be needed to qualify for [facility]. Patient verbalized understanding. Original Note: Patient remains in ER. Physical therapy eval completed. Short term rehab is recommended. Patient was at [facility] on [address] from 05/13/22-07/13/22 and was discharged home with Rachell LUNA. Clinical updates sent to facilities still following: [facility], [facility], [facility], [facility]. [facility] [place], [facility]. Patient does not want to return to [facility]. [facility] is able to offer a bed at this time. Patient is concerned because he doesn't have a secondary insurance. He is hoping for [facility] to be able to offer a bed. [facility] is not able to offer a bed. Continue to monitor for d/c needs.
== END 2022-07-15 14:36 | disposition skilled nursing facility (03) ==
PROVIDERS: Emergency Provider Emergency Medicine; PCP Family Medicine
DX: R53.1 Weakness (principal); R26.81 Unsteadiness on feet; Z20.822 Contact with and (suspected) exposure to COVID-19; Z87.891 Personal history of nicotine dependence; Z79.899 Other long term (current) drug therapy
CPT/HCPCS: 80048; 80076; 81003; 85025; 87635; 97162; 99285

== ENCOUNTER 2022-08-03 12:53 | Outpatient (REF) | payer OTHER, MEDICARE, SELFPAY ==
--- NOTE | ~2022-08-03 | XR_ITS ---
EXAMINATION: XR KNEE, RIGHT CLINICAL INFORMATION: Knee pain. COMPARISON: Multiple exams of the right knee, the most recent of which was 06/22/2022. TECHNIQUE: Two views of the right knee. FINDINGS: Degenerative changes are seen with narrowing of the medial and lateral compartments. Some mild sclerosis and some minimal osteophyte formation is present. Small area of irregularity noted at the inferior patella with tiny osteophytes. No joint effusion is seen. Extensive vascular calcification present. XR/XR knee RT 2V IMPRESSION: Mild tricompartmental degenerative changes. No acute finding.
== END 2022-08-03 12:54 | disposition home or self-care (01) ==
LOC: HO.HOSX 12:53
PROVIDERS: Visit Provider Physician Assistant
DX: M25.561 Pain in right knee (principal)
CPT/HCPCS: 73560; 99212

== ENCOUNTER → 2022-08-03 13:38 | Outpatient (BNVA) | payer MEDICARE, SELFPAY | PROVIDERS: PCP Family Medicine; Visit Provider Physician Assistant | DX: S82.101D Unspecified fracture of upper end of right tibia, subsequent encounter for closed fracture with routine healing (principal) | CPT/HCPCS: 99212 ==

== ENCOUNTER 2023-02-16 18:30 | Emergency (ER) | payer MEDICARE, SELFPAY ==
--- NOTE | ~2023-02-16 | CT_ITS ---
EXAMINATION: NONCONTRAST HEAD CT NONCONTRAST MAXILLOFACIAL CT NONCONTRAST CERVICAL SPINE CT INDICATION INFORMATION: Fall, on anticoagulants. COMPARISON: CT head 05/12/2022. TECHNIQUE: Separate noncontrast CT examinations of the head, maxillofacial bones, and cervical spine were performed. Coronal and sagittal images were created for each examination at the technologist workstation. This CT examination was performed using dose optimization techniques as appropriate, variously including the following: *Automated exposure control *Adjustment of mA and/or kV according to patient size (this includes techniques or standardized protocols for targeted exams where dose is matched to indication/reason for exam; i.e. extremities or head) *Use of iterative reconstruction technique DLP: 648, 261 and 188 mGy-cm FINDINGS: Head: There is no evidence of acute intracranial hemorrhage or territorial infarction. No abnormal mass effect or midline shift is seen. Shanks to white matter differentiation is well preserved. No extra-axial fluid collections are identified. No hydrocephalus. Proportional prominence of the ventricles and sulcal spaces is consistent with moderate volume loss. Patchy periventricular and deep white matter hypoattenuation is consistent with mild small vessel ischemic changes. Soft tissue thickening and lacerations along the right and posterior surfaces of the scalp, correlate with physical examination.. No calvarial fracture. Trace amount of bilateral mastoid fluid. Maxillofacial: No acute maxillofacial fractures are seen. Chronic nondisplaced nasal bone fractures. Chronic opacification with atelectasis of the right maxillary sinus. Other paranasal sinuses are clear. The mandibular heads are well-seated in the condylar fossa with associated degenerative osteoarthritis.. The orbits demonstrate a normal appearance bilaterally. The globes are intact, and there are no suspicious findings to suggest retrobulbar hemorrhage. Partially edentulous with multifocal periapical lucencies, recommend dental referral. Cervical spine: Reversal of the cervical lordosis with apex at C5-C6. No evidence of acute compression deformity or traumatic subluxation. Advanced multilevel spondylosis with partial ankylosis of the vertebral bodies from C3 through C5. Advanced uncovertebral hypertrophy leading to variously degrees of neural foraminal encroachment as well as central spinal canal stenosis. No prevertebral soft tissue swelling. Heterogeneous enhancement of the thyroid parenchyma. A few hyperattenuating nodules are noted in the right lobe of the thyroid largest measuring 1.2 cm (11:275). There is a subcentimeter low attenuating nodule in the left lobe of the thyroid (11:288). Soft tissues of the neck are within normal limits. Emphysematous changes in the lung apices. CT/CT cervical spine wo IV con IMPRESSION: 1. Soft tissue thickening and lacerations along the right and posterior surfaces of the scalp, correlate with physical examination. 2. No acute intracranial abnormalities. 3. No acute maxillofacial fractures. 4. No acute cervical spinal fractures or traumatic subluxation. 5. Advanced multilevel spondylosis with various degrees of neural foraminal encroachment and central spinal canal stenosis. If indicated, consider further evaluation with an MR of the cervical spine. 6. Heterogeneous enhancement of the thyroid parenchyma with multiple thyroid nodules. Recommend further evaluation with a thyroid ultrasound.
--- NOTE | 2023-02-16 18:43 | ECG_ITS ---
Test Reason : FALL Blood Pressure : / mmHG Vent. Rate : 070 BPM Atrial Rate : 070 BPM P-R Int : 160 ms QRS Dur : 098 ms QT Int : 452 ms P-R-T Axes : 000 -23 089 degrees QTc Int : 488 ms Sinus rhythm with sinus arrhythmia with occasional Premature ventricular complexes Prolonged QT Abnormal ECG When compared with ECG of 16-JUL-2020 22:39, Premature ventricular complexes are now Present Premature atrial complexes are no longer Present Referred By: Arielle Avitia Electronically Signed By:MARII SAUCEDA MD
[2023-02-16 18:52] VITALS: BP 123/69; PULSE 74; RESP 18; TEMP 36.4; O2SAT 97; BMI 21.5
[2023-02-16 19:59] LABS: MANUAL DIFF FLAG NO
[2023-02-16 20:00] LABS: Basophils Percent Auto 0.3 % (0-2); Eosinophils Absolute Auto 0.1 X10*3/uL (0.0-0.4); Eosinophils Percent Auto 0.9 % (0-4); Hematocrit 32.1 % (42.0-52.0); Hemoglobin 10.7 g/dl (14.0-18.0); Imm Gran Abs Auto 0.03 X10*3/uL (0.00-0.03); Imm Gran Pct Auto 0.3 % (0.0-0.4); Lymphocytes Absolute Auto 0.8 X10*3/uL (1.2-4.9); Lymphocytes Percent Auto 9.6 % (20-40); Mean Corpuscular HGB Conc 33.3 g/dl (31.0-36.0); Mean Corpuscular Hemoglobin 33.1 pg (27.0-33.0); Mean Corpuscular Volume 99.4 fL (80.0-98.0); Mean Platelet Volume 9.6 fL (9.4-12.4); Monocytes Absolute Auto 0.7 X10*3/uL (0.1-1.2); Monocytes Percent Auto 8.6 % (2-11); Neutrophils Absolute Auto 6.9 x10*3/uL (2.0-8.3); Neutrophils Percent Auto 80.3 % (45-73); Platelet Count 273 X10*3/uL (160-400); Red Blood Count 3.23 X10*6/uL (4.60-5.80); Red Cell Distribution Width 13.6 % (11.0-16.0); White Blood Count 8.6 X10*3/uL (4.8-10.8)
--- NOTE | 2023-02-16 20:01 | ED_ITS ---
HPI - Fall General Chief Complaint: Fall Stated Complaint: fall Time Seen by Provider: 02/16/23 18:42 Source: patient Mode of arrival: EMS History of Present Illness HPI Narrative: 82-year-old male on anticoagulation sustained a mechanical fall when he tripped over the carpet striking his scalp on the edge of the wall. Related Data Home Medications Medication Instructions Recorded Confirmed furosemide 20 mg tablet 2 tab PO BID 05/12/22 05/12/22 pravastatin 40 mg tablet 1 tab PO DAILY 05/12/22 05/12/22 prednisone 2.5 mg tablet 1 tab PO DAILY 05/12/22 07/15/22 sertraline 50 mg tablet 1 tab PO DAILY 05/12/22 05/12/22 tacrolimus 1 mg capsule, 1 cap PO BID 05/12/22 07/15/22 immediate-release acetaminophen 325 mg capsule 650 mg PO Q4H PRN 08/03/22 (Tylenol) bisacodyl 10 mg rectal suppository 10 mg OH DAILY PRN 08/03/22 (Dulcolax (bisacodyl)) magnesium hydroxide 400 mg/5 mL 30 ml PO DAILY PRN 08/03/22 oral suspension (Milk of Magnesia) Allergies Allergy/AdvReac Type Severity Reaction Status Date / Time No Known Allergies [NKA] Allergy Verified 08/03/22 14:02 Review of Systems Review of Systems: Pertinent positives and negatives as stated in HPI [facility] Past Medical History Source: nursing notes reviewed Medical History Hernia Lymphedema Surgical History Kidney transplant recipient Renal transplant recipient Social History Social History Alcohol intake: unknown Patient Tobacco Use Status: Former Tobacco user Advance Directives: Yes Advance Directives on File: Yes Advance Directives Date on File: 05/13/22 Physical Exam Vital Signs: Vital Signs: Last Vital Signs Temp 98.3 F 02/16/23 22:00 Pulse 69 02/16/23 22:00 Resp 17 02/16/23 22:00 BP 104/71 02/16/23 22:00 Pulse Ox 99 02/16/23 22:00 O2 Del Method Room Air 02/16/23 22:00 BMI result Body Mass Index 21.5 VITAL SIGNS: Reviewed. GENERAL: Well developed, well nourished, in no acute distress. HEAD: Normocephalic/4 cm laceration to right vertex scalp EYES: PERRLA, EOMI, right periorbital ecchymosis EARS: Ext canals without abnormality NOSE: Nares patent bilateral OROPHARYNX: no oral lesions noted, posterior pharynx clear NECK: C-collar in place, no adenopathy, no midline cervical spine tenderness or step-offs noted LUNGS: Normal breath sounds. No adventitious sounds or accessory muscle use. SpO2<97> CARDIOVASCULAR: Regular rate and rhythm without noted murmurs, no JVD or lower extremity edema. ABDOMEN: Soft, non-tender, non-distended with bowel sounds. MUSCULOSKELETAL: No tenderness, deformities, or effusions noted on gross inspection. EXTREMITIES: No cyanosis, clubbing or edema, bilateral lower extremity lymphedema. SKIN: Inspection of the skin reveals no rashes NEUROLOGIC: Alert and oriented x 3. Strength and sensation to light touch were grossly intact x 4. Medications Administered Discontinued Medications Generic Name Dose Route Start Last Admin Trade Name Freq PRN Reason Stop Dose Admin Acetaminophen 975 mg 02/16/23 21:37 02/16/23 22:09 Acetaminophen 325 Mg Tablet PO 02/16/23 21:38 975 mg ONCE ONE Administration Procedures Laceration Laceration 1: Site: scalp Side (If applicable): right Size (cm): 4 Description: linear Depth: simple, single layer Local Anesthetic: lidocaine 1% Amount of anesthesia used (mL): 2 Pre-repair: wound explored, irrigated extensively and deep structures intact Skin layer closed with: nylon Size (cm): 4-0 Number of sutures: 3 Technique: simple, interrupted Medical Decision Making Medical Decision Making MDM Narrative: 82-year-old male with mechanical fall will obtain basic labs/EKG/CT of head and neck given being on anticoagulation. Scalp was sutured with good approximation and hemostasis. Review of all investigations patient has chronically stable labs and scalp laceration was repaired successfully and is currently hemostatic, all imaging is negative for acute pathology and he is discharged home. Differential Diagnosis Please see the discussion above Lab Data Please see the discussion above 02/16/23 19:40 02/16/23 19:40 Labs: Lab Results 05/30/23 05/30/23 05/30/23 Range/Units 19:40 19:40 19:40 WBC 8.6 (4.8-10.8) X10*3/uL RBC 3.23 L (4.60-5.80) X10*6/uL Hgb 10.7 L (14.0-18.0) g/dl Hct 32.1 L (42.0-52.0) % MCV 99.4 H (80.0-98.0) fL MCH 33.1 H (27.0-33.0) pg MCHC 33.3 (31.0-36.0) g/dl RDW 13.6 (11.0-16.0) % Plt Count 273 (160-400) X10*3/uL MPV 9.6 (9.4-12.4) fL Immature Gran % (Auto) 0.3 (0.0-0.4) % Neut % (Auto) 80.3 H (45-73) % Lymph % (Auto) 9.6 L (20-40) % [place] % (Auto) 8.6 (2-11) % Eos % (Auto) 0.9 (0-4) % Baso % (Auto) 0.3 (0-2) % Lymph # (Auto) 0.8 L (1.2-4.9) X10*3/uL [place] # (Auto) 0.7 (0.1-1.2) X10*3/uL Eos # (Auto) 0.1 (0.0-0.4) X10*3/uL Baso # (Auto) 0.0 (0.0-0.2) X10*3/uL Abs Immat Gran (auto) 0.03 (0.00-0.03) X10*3/uL Absolute Neuts (auto) 6.9 (2.0-8.3) x10*3/uL Absolute Nucleated RBC 0.000 (0.0-0.012) X10*3/uL Nucleated RBC % (auto) 0.0 (0.0-0.2) /100WBC PT 12.7 (10.0-13.1) SEC INR 1.1 (0.9-1.1) Sodium 143 (135-145) mmol/L Potassium 4.3 (3.3-5.1) mmol/L Chloride 104 (96-108) mmol/L Carbon Dioxide 26 (22-29) mmol/L Anion Gap 17 (12-20) BUN 63 H (9-16) mg/dL Creatinine 2.01 H (0.5-1.4) mg/dL Estim Creat Clear Calc 26.7 Estimated GFR 32 Random Glucose 108 (60-115) mg/dL Calcium 9.3 D (8.4-10.2) mg/dL Total Bilirubin 0.8 (0.0-1.0) mg/dL AST 27 (5-37) U/L ALT 30 (0-40) U/L Alkaline Phosphatase 59 (39-117) U/L Troponin I High Sens (<3.5-35.0) ng/L Total Protein 6.3 L (6.5-8.0) g/dL Albumin 3.1 L (3.5-5.0) g/dL 02/16/23 Range/Units 19:40 WBC (4.8-10.8) X10*3/uL RBC (4.60-5.80) X10*6/uL Hgb (14.0-18.0) g/dl Hct (42.0-52.0) % MCV (80.0-98.0) fL MCH (27.0-33.0) pg MCHC (31.0-36.0) g/dl RDW (11.0-16.0) % Plt Count (160-400) X10*3/uL MPV (9.4-12.4) fL Immature Gran % (Auto) (0.0-0.4) % Neut % (Auto) (45-73) % Lymph % (Auto) (20-40) % [place] % (Auto) (2-11) % Eos % (Auto) (0-4) % Baso % (Auto) (0-2) % Lymph # (Auto) (1.2-4.9) X10*3/uL [place] # (Auto) (0.1-1.2) X10*3/uL Eos # (Auto) (0.0-0.4) X10*3/uL Baso # (Auto) (0.0-0.2) X10*3/uL Abs Immat Gran (auto) (0.00-0.03) X10*3/uL Absolute Neuts (auto) (2.0-8.3) x10*3/uL Absolute Nucleated RBC (0.0-0.012) X10*3/uL Nucleated RBC % (auto) (0.0-0.2) /100WBC PT (10.0-13.1) SEC INR (0.9-1.1) Sodium (135-145) mmol/L Potassium (3.3-5.1) mmol/L Chloride (96-108) mmol/L Carbon Dioxide (22-29) mmol/L Anion Gap (12-20) BUN (9-16) mg/dL Creatinine (0.5-1.4) mg/dL Estim Creat Clear Calc Estimated GFR Random Glucose (60-115) mg/dL Calcium (8.4-10.2) mg/dL Total Bilirubin (0.0-1.0) mg/dL AST (5-37) U/L ALT (0-40) U/L Alkaline Phosphatase (39-117) U/L Troponin I High Sens 11.1 (<3.5-35.0) ng/L Total Protein (6.5-8.0) g/dL Albumin (3.5-5.0) g/dL Independent Interpretation I performed an independent interpretation of an: EKG Interpretation: Sinus rhythm, HR-70, no STEMI, PVCs occasional, QRS within normal limits, QTC and QT are prolonged. Radiology Impression Radiologist Impression: My interpretation is in agreement with radiology's impression External Record Review External record reviewed: Prior outpatient labs Discharge Plan Discharge Clinical Impression: Fall, Periorbital ecchymosis of right eye, Laceration of scalp Patient Disposition: Home, Self-Care Instructions: Laceration (ED), Black Eye (ED), Fall Prevention for Older Adults (ED) Additional Instructions: 1. Resume all home medications as prescribed. Recommend [id number] Tylenol for any headaches or pain. 2. You will need to return to your primary care provider or this emergency room to have those sutures removed in 7 days. 3. You may cleanse the sutures gently with soap and water but you will need to then blot them dry and place antibiotic ointment. 4. Please follow-up with your primary care provider by calling the office in the morning and setting up an appointment for re-evaluation. Return to the ER for any worsening symptoms. Prescriptions: No Action pravastatin 40 mg tablet 1 tab PO DAILY prednisone 2.5 mg tablet 1 tab PO DAILY furosemide 20 mg tablet 2 tab PO BID sertraline 50 mg tablet 1 tab PO DAILY tacrolimus 1 mg capsule 1 cap PO BID bisacodyl [Dulcolax (bisacodyl)] 10 mg suppository 10 mg OH DAILY PRN magnesium hydroxide [Milk of Magnesia] 400 mg/5 mL suspension 30 ml PO DAILY PRN acetaminophen [Tylenol] 325 mg capsule 650 mg PO Q4H PRN Referrals: Rashawn Prabhakar MD [Primary Care Provider] -
[2023-02-16 20:05] LABS: INTERNATIONAL NORM RATIO 1.1 (0.9-1.1); Prothrombin Time 12.7 SEC (10.0-13.1)
[2023-02-16 20:19] LABS: Alanine Aminotransferase 30 U/L (0-40); Albumin Level 3.1 g/dL (3.5-5.0); Alkaline Phosphatase 59 U/L (39-117); Anion Gap 17 (12-20); Aspartate Amino Transferase 27 U/L (5-37); Bilirubin Total 0.8 mg/dL (0.0-1.0); Blood Urea Nitrogen 63 mg/dL (9-16); Calcium 9.3 mg/dL (8.4-10.2); Carbon Dioxide 26 mmol/L (22-29); Chloride 104 mmol/L (96-108); Creatinine Clr Calc Pharmacy 26.7; Estimated Glomerular Filt Rate 32; Glucose Random 108 mg/dL (60-115); Potassium 4.3 mmol/L (3.3-5.1); Sodium 143 mmol/L (135-145); Total Protein 6.3 g/dL (6.5-8.0)
[2023-02-16 20:26] LABS: Troponin-I High Sensitivity 11.1 ng/L (<3.5-35.0)
[2023-02-16 22:00] VITALS: BP 104/71; PULSE 69; RESP 17; TEMP 36.8; O2SAT 99
[2023-02-16] MEDS: Acetaminophen 325 MG TABLET 975 MG PO (22:09)
[2023-02-16 22:41] LABS: Appearance Urine Clear; Color Urine Yellow; Glucose Urine UA Negative (Negative); Leukocyte Esterase Urine Negative (Negative); Nitrite Urine Negative (Negative); PH 6.5 (5.0-9.0); Specific Gravity - Urine 1.015 (1.005-1.025); Urine Blood Negative (Negative); Urine Ketones Negative (Negative); Urine Protein Negative (Neg-Trace)
== END 2023-02-16 23:24 | disposition home or self-care (01) ==
PROVIDERS: Emergency Provider Student in an Organized Health Care Education/Training Program; PCP Family Medicine
DX: S00.11XA Contusion of right eyelid and periocular area, initial encounter (principal); S01.01XA Laceration without foreign body of scalp, initial encounter; W01.198A Fall on same level from slipping, tripping and stumbling with subsequent striking against other object, initial encounter; Y93.9 Activity, unspecified; Y92.019 Unspecified place in single-family (private) house as the place of occurrence of the external cause; Y99.9 Unspecified external cause status; Z79.01 Long term (current) use of anticoagulants
CPT/HCPCS: 12032; 36415; 70450; 70486; 72125; 80053; 81003; 84484; 85025; 85610; 93005; 99284; 99285

== ENCOUNTER 2023-03-06 07:43 | Emergency (ER) | payer MEDICARE, SELFPAY ==
--- NOTE | ~2023-03-06 | XR_ITS ---
EXAMINATION: XR KNEE, RIGHT CLINICAL INFORMATION: Status post fall, swelling COMPARISON: None available. TECHNIQUE: Four views of the right knee. FINDINGS: There is mild loss of joint compartment joint space. There is a small cortical defect along the medial femoral articulating condyle. There is moderate suprapatellar joint effusion with superior and inferior patellar enthesophytes. No loose body seen. There is no dislocation.. XR/XR knee RT 4V IMPRESSION: 1. Moderate suprapatellar joint effusion. . 2. Mild degenerative changes medial joint compartment. 3. Small cortical defect along the articulating medial femoral condyle question small fracture. No free fragment seen.
--- NOTE | ~2023-03-06 | CT_ITS ---
Examination: CT brain and CT cervical spine without contrast. Clinical indications: Status post fall. COMPARISON: CT cervical spine 02/16/2023 TECHNIQUE: 5 mm thin axial and reformatted 2 mm thin sagittal and coronal images of brain were obtained. Subsequently axial 3 mm thin and reformatted 2 mm thin sagittal coronal images of cervical spine were obtained. DLP [id number]. This CT examination was performed using dose optimization technique as appropriate, variously including the following: Automated exposure control Adjustment of MA and/or KV according to patient size(this includes techniques or standardized protocols for targeted exams where dose is matched to indication/reason for exam; extremities or head. Use of iterative reconstruction techniques. FINDINGS: Brain: There is no acute intra-axial, extra-axial bleed, masses or midline shift. There is no acute infarction evolution. No edema. There is diffuse periventricular white matter hypodensity without mass effect. The lateral ventricles are symmetrical in size but moderately enlarged. Bone windows reveal no calvarial abnormality. Bilateral paranasal sinuses and mastoid air cells are well-aerated with complete opacification of right maxillary sinus. Rest of the paranasal sinuses and mastoid air cells are well-aerated. Cervical spine: There is reversal of cervical spondylosis. There is loss of C3-C4, C4-C5 and C5-C6 disc heights with moderate ventral and mild posterior spondylosis. The craniovertebral junction and C1-C2 alignment is normal. There is moderate right C2-C3 bilateral C3-C4 moderate C4-C5 facet joint arthropathy. There is no acute fracture, dislocation or subluxation seen. No bony erosive changes. The prevertebral and paravertebral soft tissues are normal. The thyroid lobes are symmetrical but enlarged with a hypodense 1 cm nodule right lobe. The airways widely patent. The lung apices are clear. CT/CT cervical spine wo IV con IMPRESSION: 1. No acute intracranial process seen. 2. Moderate cerebral volume loss with chronic small vessel ischemic changes. 3. Reversal of cervical spondylosis with degenerative disc changes C3-C4, C4-C5 and C5-C6 disc levels with ventral and posterior spondylosis. No visible acute fracture, dislocation or subluxation seen. 4. The thyroid lobes are symmetrical but enlarged with a hypodense 1 cm nodule right lobe.
--- NOTE | ~2023-03-06 | CT_ITS ---
EXAMINATION: CT KNEE WITHOUT CONTRAST, RIGHT CLINICAL INFORMATION: Fall, abnormal x-ray. COMPARISON: X-ray 03/06/2023. Prior x-rays 08/03/2022, 05/12/2022. TECHNIQUE: Axial imaging. Sagittal and coronal reconstructions. This CT examination was performed using dose optimization techniques as appropriate, variously including the following: *Automated exposure control *Adjustment of mA and/or kV according to patient size (this includes techniques or standardized protocols for targeted exams where dose is matched to indication/reason for exam; i.e. extremities or head) *Use of iterative reconstruction technique DLP: 188 mGy-cm FINDINGS: Diffuse bone demineralization limiting sensitivity and specificity. In the medial aspect of the weightbearing medial femoral condyle, there is subchondral lucency, with mild articular surface cortical depression. This measures approximately 0.9 x 1.2 cm (AP x ML). Differential considerations include sequela of age indeterminate trauma, osteochondral lesion, avascular necrosis. There is slight bony depression/defect of the medial aspect of the medial tibial plateau. Findings suspicious for a fracture. No fibular or patellar fractures identified. Mild-moderate medial compartment arthritis, joint space loss. Mild patellofemoral arthritis. Moderate-large joint effusion. There is a complex mass/collection in the posterior/medial aspect of the distal femur, which is partially imaged, superiorly extending beyond the [id number]. The inferior aspect of this extends to the region of the junction of the medial gastrocnemius/semimembranosus interface. There are multiple foci of air within this. Differential considerations include infectious process/abscess given the presence of air; atypically positioned complex Dewitt's cyst, containing air from indeterminate etiology; inflammatory process; hematoma given the clinical history of trauma. There is marked circumferential soft tissue swelling and subcutaneous stranding which could be related to edema or cellulitis. Limited evaluation of the tendons. The quadriceps and patellar tendons grossly appear intact. CT/CT knee RT wo IV con IMPRESSION: 1. Abnormal findings in the weightbearing medial femoral condyle, measuring 0.9 x 1.2 cm, detailed above. Differential considerations include sequela of fracture of indeterminate age, osteochondral lesion, avascular necrosis. Further evaluation with MRI as clinically warranted. 2. Slight bony depression/cortical defect in the medial aspect of medial tibial plateau. Findings suspicious for a fracture. 3. Large complex collection/mass posterior to the distal femur/popliteal fossa extending to the region of the medial gastrocnemius/semimembranosus tendons interface. Of note, this is extending superior to the [id number], and is incompletely imaged. There are multiple foci of air within this, of uncertain etiology. Infectious process/abscess given the presence of air, need to be excluded. Atypically positioned complex Dewitt's cyst cyst, containing air from indeterminate etiology; question recent procedure/aspiration; inflammatory process; hematoma. Recommend clinical correlation and management, orthopedic/surgical consultation. 4. Moderate-large joint effusion. 5. Marked circumferential soft tissue swelling and subcutaneous edema
--- NOTE | 2023-03-06 07:57 | ED.FALL ---
HPI - Fall General Chief Complaint: Fall Stated Complaint: FALL R KNEE PAIN Time Seen by Provider: 03/06/23 07:50 Source: patient, EMS and old records reviewed Mode of arrival: EMS Limitations: no limitations History of Present Illness HPI Narrative: 82 yo male with history of ESRD s/p kidney transplant 17 years ago with CKD (baseline SCr 1.5-2), HTN, lymphedema, hx recurrent falls, hx right tibial fracture 07/11 who presents to the ER from home via EMS for evaluation after he fell this morning. Patient states that when he got out of bed this morning he tripped over his bulky, thick socks. He fell onto his night stand hitting his right elbow, right shoulder. He did not hit his head. He states he fell because he has been having chronic right knee pain as well. He denies any LOC. He states he is only on aspirin. EMS reports he also fell last night and his 92 year old helped him up. He denies any preceding chest pain, lightheadedness, dizziness or other symptoms prior to the fall. He was unable to get up due to issues with his socks per his report. He was seen here 02/16 for a fall with headstrike requiring suture repair of a laceration to his head. MD complaint: fall Onset (ago): minute(s) Fall from: standing Fall witnessed: yes, by family Place fall occurred: home Loss of consciousness: none Prolonged down time: no Symptoms prior to fall: none Context: tripped/slipped Location of injury - extremities: right: shoulder and elbow Severity: moderate Severity scale (1-10): 5 Quality: aching Associated symptoms (after fall): denies Related Data Home Medications Medication Instructions Recorded Confirmed furosemide 20 mg tablet 2 tab PO BID 05/12/22 03/06/23 pravastatin 40 mg tablet 1 tab PO DAILY 05/12/22 03/06/23 prednisone 2.5 mg tablet 1 tab PO DAILY 05/12/22 03/06/23 sertraline 50 mg tablet 1 tab PO DAILY 05/12/22 03/06/23 tacrolimus 1 mg capsule, 1 cap PO BID 05/12/22 03/06/23 immediate-release acetaminophen 650 mg 650 mg PO Q8H PRN arthritis 03/06/23 03/06/23 tablet,extended release aspirin 81 mg tablet,delayed 81 mg PO DAILY 03/06/23 03/06/23 release ferrous gluconate 324 mg (38 mg 324 mg PO DAILY 03/06/23 03/06/23 iron) tablet metoprolol succinate 25 mg 25 mg PO DAILY 03/06/23 03/06/23 tablet,extended release 24 hr montelukast 10 mg tablet 10 mg PO BEDTIME 03/06/23 03/06/23 potassium chloride 10 mEq 10 meq PO DAILY 03/06/23 03/06/23 tablet,extended release Allergies Allergy/AdvReac Type Severity Reaction Status Date / Time No Known Allergies [NKA] Allergy Verified 08/03/22 14:02 Review of Systems Review of Systems: Yes all other systems are reviewed and are negative [facility] Past Medical History Medical History Hernia Lymphedema Surgical History Kidney transplant recipient Renal transplant recipient Social History Social History Alcohol intake: former Patient Tobacco Use Status: Former Tobacco user Advance Directives: No Advance Directives Information Provided: No Advance Directives Date on File: 05/13/22 Physical Exam Vital Signs: Vital Signs: Last Vital Signs Temp 98.1 F 03/07/23 06:54 Pulse 87 03/07/23 07:46 Resp 18 03/07/23 06:54 BP 133/67 03/07/23 07:46 Pulse Ox 97 03/07/23 06:54 O2 Del Method Room Air 03/07/23 06:54 BMI result Body Mass Index 21.2 Appearance: Alert. Oriented X3. No acute distress. Head: well healed 5cm linear laceration on the top of the head. old ecchymosis below the right eye. Eyes: Pupils equal, round and reactive to light. ENT: Pharynx normal. No tonsillar swelling or exudate. Neck: Normal inspection. Neck supple. no cervical spinal tenderness. CVS: Normal heart rate and rhythm. Pulses normal. Respiratory: No respiratory distress. Breath sounds normal. Abdomen: Soft and nontender. +BS x4 Skin: Skin warm and dry. Normal skin color. Normal skin turgor. No rashes. Extremities: 3+ pitting edema of the RLE involving the knee and distal thigh. pain with flexion of the right knee past 90 degrees. normal inspection and palpation of the right popliteal area and proximal thigh, no crepitus or skin changes. 1+ pitting edema of the bilateral lower legs. nontender right shoulder with normal active and passive ROM Neuro/psych: Oriented X 3. CN II-XII intact. Normal speech and cognition. Course Course Course Narrative: 03/07/23 08:12 Physician observation continued. Patient evaluated by PT and STR recommended. Patient requested pain medication overnight and oxycodone 10mg was ordered. Patient again requesting pain medication this am and oxycodone 5mg x 1 was ordered. 03/07/2023 09:39 Per Case Management, patient has been accepted to [facility] in [place]. Reevaluation(s) Reevaluation #1: Physician observation started at 10:34. Patient placed in physician observation because patient is awaiting PT evaluation for the. At the time observation was started patient's vital signs were stable. Patient is alert and oriented. Neuro exam is non-focal. CV: RRR and lungs are clear. Will continue to monitor. Orthopedics recommending NWB and knee immobilizer for comfort, not required. Time: 10:34 Consultations Consultation #1: Orthopedics - Cristel PONCE Medications Administered Generic Name Dose Route Start Last Admin Trade Name Freq PRN Reason Stop Dose Admin Acetaminophen 650 mg 03/06/23 13:48 03/07/23 01:16 Acetaminophen 325 Mg Tablet PO 650 mg Q8H PRN Administration mild pain Aspirin 81 mg 03/07/23 09:00 03/07/23 08:50 Aspirin Enteric Coated 81 Mg Tablet. PO 81 mg DAILY KIMI Administration Ferrous Sulfate 324 mg 03/07/23 09:00 03/07/23 08:51 Ferrous Sulfate 324 Mg Tablet. PO 324 mg DAILY KIMI Administration Furosemide 40 mg 03/06/23 13:45 03/07/23 08:51 Furosemide 40 Mg Tablet PO 40 mg BID KIMI Administration Protocol Metoprolol Succinate 25 mg 03/07/23 09:00 03/07/23 08:51 Metoprolol Succinate Er 25 Mg Tab.Er.24h PO 25 mg DAILY KIMI Administration Protocol Montelukast Sodium 10 mg 03/06/23 21:00 03/06/23 20:09 Montelukast Sodium 10 Mg Tablet PO 10 mg BEDTIME KIMI Administration Potassium Chloride 10 meq 03/07/23 09:00 03/07/23 09:02 Potassium Chloride Er 10 Meq Tablet.Er PO 10 meq DAILY KIMI Administration Pravastatin Sodium 40 mg 03/07/23 09:00 03/07/23 09:02 Pravastatin Sodium 40 Mg Tablet PO 40 mg DAILY KIMI Administration Prednisone 2.5 mg 03/07/23 09:00 03/07/23 08:51 Prednisone 2.5 Mg Tablet PO 2.5 mg DAILY KIMI Administration Sertraline HCl 50 mg 03/07/23 09:00 03/07/23 08:50 Sertraline Hcl 50 Mg Tablet PO 50 mg DAILY KIMI Administration Tacrolimus 1 mg 03/06/23 13:45 03/07/23 09:02 Tacrolimus 1 Mg Capsule PO 1 mg BID KIMI Administration Discontinued Medications Generic Name Dose Route Start Last Admin Trade Name Edilbertoq PRN Reason Stop Dose Admin Diphenhydramine HCl 25 mg 03/06/23 22:22 03/06/23 22:28 Diphenhydramine Hcl 25 Mg Capsule PO 03/06/23 22:23 25 mg ONCE ONE Administration Nystatin 1 appl 03/06/23 22:18 03/06/23 23:22 Nystatin Powder 15 Gm Bottle TOPICAL 03/06/23 22:19 Not Given ONCE ONE Protocol Oxycodone HCl 10 mg 03/07/23 02:07 03/07/23 02:10 Oxycodone Hcl Immed Release 5 Mg Tablet PO 03/07/23 02:08 10 mg ONCE ONE Administration Oxycodone HCl 5 mg 03/07/23 08:10 03/07/23 08:50 Oxycodone Hcl Immed Release 5 Mg Tablet PO 03/07/23 08:11 5 mg ONCE ONE Administration Medical Decision Making Medical Decision Making MDM Narrative: 82 yo male with history of ESRD s/p kidney transplant 17 years ago with CKD (baseline SCr 1.5-2), HTN, lymphedema, hx recurrent falls, hx right tibial fracture 07/11 who presents to the ER from home via EMS for evaluation after he fell this morning. He c/o acute on chronic right knee - has notable swelling which he reports is chronic in nature. the pain has been making him fall. 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 it was unremarkable for bleed or injury. Labs were unremarkable. CKD at baseline, UA negative for infection. Knee x-ray was abnormal, prompting CT scan for further evaluation. it showed several findings including probable medial tibial plateau fracture, possible medial femoral condyle fracture of indeterminate age vs AVN vs osteochondral lesion. it also showed a large, complex collection/mass posterior to the distal femur, popliteal fossa extending to the medial gastroc with foci of air. This was reviewed. Unclear etiology. The area on examination is not erythematous, warm, tender, ecchymotic. Doubt acute infection. Possible this is a old hematoma from his recurrent falls. Case discussed with Dr. Burrell who is recommending holding off on aspiration of this area for now. He has no fever or leukocytosis. Patient placed in physician observation pending PT evaluation. He is to be nonweightbearing on his right lower extremity per orthopedic recommendations. Knee immobilizer p.r.n. comfort. He is unsafe to return home. Case Management has been consulted. Home medication reconciliation has been ordered along with p.o. diet. Will continue monitor. Differential Diagnosis Differential Diagnoses: The differential diagnosis associated with the presentation includes Mechanical fall resulting in possible femur fx, patella fx, tibial fx. doubt elbow or shoulder injury given exam Admission/Observation Consideration of admission/observation: Escalation of care including admission/observation considered Lab Data MDM Lab Attestation statement: I reviewed the patient's lab results. CKD at baseline, chronic macrocytic anemia, slightly worse than baseline. ESR is 103, unclear etiology. 03/06/23 08:44 03/06/23 08:22 Labs: Lab Results 03/06/23 03/06/23 03/06/23 Range/Units 08:22 08:44 08:44 WBC 8.2 (4.8-10.8) X10*3/uL RBC 2.98 L (4.60-5.80) X10*6/uL Hgb 9.7 L (14.0-18.0) g/dl Hct 29.4 L (42.0-52.0) % MCV 98.7 H (80.0-98.0) fL MCH 32.6 (27.0-33.0) pg MCHC 33.0 (31.0-36.0) g/dl RDW 13.8 (11.0-16.0) % Plt Count 337 (160-400) X10*3/uL MPV 9.4 (9.4-12.4) fL Immature Gran % (Auto) 0.5 H (0.0-0.4) % Neut % (Auto) 77.4 H (45-73) % Lymph % (Auto) 10.0 L (20-40) % Smith % (Auto) 9.4 (2-11) % Eos % (Auto) 2.3 (0-4) % Baso % (Auto) 0.4 (0-2) % Lymph # (Auto) 0.8 L (1.2-4.9) X10*3/uL Smith # (Auto) 0.8 (0.1-1.2) X10*3/uL Eos # (Auto) 0.2 (0.0-0.4) X10*3/uL Baso # (Auto) 0.0 (0.0-0.2) X10*3/uL Abs Immat Gran (auto) 0.04 H (0.00-0.03) X10*3/uL Absolute Neuts (auto) 6.3 (2.0-8.3) x10*3/uL Absolute Nucleated RBC 0.000 (0.0-0.012) X10*3/uL Nucleated RBC % (auto) 0.0 (0.0-0.2) /100WBC ESR 103 H (0-15) MM/HR Sodium 139 (135-145) mmol/L Potassium 3.9 (3.3-5.1) mmol/L Chloride 106 (96-108) mmol/L Carbon Dioxide 21 L (22-29) mmol/L Anion Gap 16 (12-20) BUN 59 H (9-16) mg/dL Creatinine 1.62 H (0.5-1.4) mg/dL Estim Creat Clear Calc 32.7 Estimated GFR 41 Random Glucose 99 (60-115) mg/dL Calcium 9.3 (8.4-10.2) mg/dL Magnesium 1.9 (1.6-2.6) mg/dL Total Bilirubin 0.7 (0.0-1.0) mg/dL Direct Bilirubin 0.3 (0.0-0.5) mg/dL AST 54 H (5-37) U/L ALT 52 H (0-40) U/L Alkaline Phosphatase 77 (39-117) U/L C-Reactive Protein 10.83 H (< or = 0.50) mg/dL Total Protein 6.6 (6.5-8.0) g/dL Albumin 2.8 L (3.5-5.0) g/dL Urine Color Urine Appearance Urine pH (5.0-9.0) Ur Specific [place] (1.005-1.025) Urine Protein (Neg-Trace) mg/dL Urine Glucose (UA) (Negative) mg/dL Urine Ketones (Negative) mg/dL Urine Blood (Negative) Urine Nitrite (Negative) Ur Leukocyte Esterase (Negative) 03/06/23 Range/Units 10:58 WBC (4.8-10.8) X10*3/uL RBC (4.60-5.80) X10*6/uL Hgb (14.0-18.0) g/dl Hct (42.0-52.0) % MCV (80.0-98.0) fL MCH (27.0-33.0) pg MCHC (31.0-36.0) g/dl RDW (11.0-16.0) % Plt Count (160-400) X10*3/uL MPV (9.4-12.4) fL Immature Gran % (Auto) (0.0-0.4) % Neut % (Auto) (45-73) % Lymph % (Auto) (20-40) % Smith % (Auto) (2-11) % Eos % (Auto) (0-4) % Baso % (Auto) (0-2) % Lymph # (Auto) (1.2-4.9) X10*3/uL Smith # (Auto) (0.1-1.2) X10*3/uL Eos # (Auto) (0.0-0.4) X10*3/uL Baso # (Auto) (0.0-0.2) X10*3/uL Abs Immat Gran (auto) (0.00-0.03) X10*3/uL Absolute Neuts (auto) (2.0-8.3) x10*3/uL Absolute Nucleated RBC (0.0-0.012) X10*3/uL Nucleated RBC % (auto) (0.0-0.2) /100WBC ESR (0-15) MM/HR Sodium (135-145) mmol/L Potassium (3.3-5.1) mmol/L Chloride (96-108) mmol/L Carbon Dioxide (22-29) mmol/L Anion Gap (12-20) BUN (9-16) mg/dL Creatinine (0.5-1.4) mg/dL Estim Creat Clear Calc Estimated GFR Random Glucose (60-115) mg/dL Calcium (8.4-10.2) mg/dL Magnesium (1.6-2.6) mg/dL Total Bilirubin (0.0-1.0) mg/dL Direct Bilirubin (0.0-0.5) mg/dL AST (5-37) U/L ALT (0-40) U/L Alkaline Phosphatase (39-117) U/L C-Reactive Protein (< or = 0.50) mg/dL Total Protein (6.5-8.0) g/dL Albumin (3.5-5.0) g/dL Urine Color Yellow Urine Appearance Clear Urine pH 6.5 (5.0-9.0) Ur Specific [place] 1.010 (1.005-1.025) Urine Protein Negative (Neg-Trace) mg/dL Urine Glucose (UA) Negative (Negative) mg/dL Urine Ketones Negative (Negative) mg/dL Urine Blood Negative (Negative) Urine Nitrite Negative (Negative) Ur Leukocyte Esterase Negative (Negative) Independent Interpretation I performed an independent interpretation of an: Plain X-Ray and CT Scan Interpretation: XR knee reviewed - soft tissue edema, no appreciated fracture, agree w/ radiolody read. CT knee reviewed w/ Dr. Burrell - significant soft tissue edema, foci of air in the soft tissues of the posterior leg, unclear etiology, no major fracture - agree w/ radiology read Radiology Impression Discussion of test interpretation with radiology: I have reviewed the radiologist's reading. Radiologist Impression: CT/CT head/brain wo IV con IMPRESSION: 1.? No acute intracranial process seen. 2.? Moderate cerebral volume loss with chronic small vessel ischemic changes. 3.? Reversal of cervical spondylosis with degenerative disc changes C3-C4, C4-C5 and C5-C6 disc levels with ventral and posterior spondylosis. No visible acute fracture, dislocation or subluxation seen. 4.? The thyroid lobes are symmetrical but enlarged with a hypodense 1 cm nodule right lobe. CT/CT knee RT wo IV con IMPRESSION: ? 1. Abnormal findings in the weightbearing medial femoral condyle, measuring 0.9 x 1.2 cm, detailed above. Differential considerations include sequela of fracture of indeterminate age, osteochondral lesion, avascular necrosis. Further evaluation with MRI as clinically warranted. ? 2. Slight bony depression/cortical defect in the medial aspect of medial tibial plateau. Findings suspicious for a fracture. ? 3. Large complex collection/mass posterior to the distal femur/popliteal fossa extending to the region of the medial gastrocnemius/semimembranosus tendons interface. Of note, this is extending superior to the [id number], and is incompletely imaged. There are multiple foci of air within this, of uncertain etiology. Infectious process/abscess given the presence of air, need to be excluded. Atypically positioned complex Dewitt's cyst cyst, containing air from indeterminate etiology; question recent procedure/aspiration; inflammatory process; hematoma. Recommend clinical correlation and management, orthopedic/surgical consultation. ? 4. Moderate-large joint effusion. ? 5. Marked circumferential soft tissue swelling and subcutaneous edema Independent Historian Clinical information obtained from an independent historian. History obtained from or confirmed by: EMS External Record Review External record reviewed: Outpatient record, Prior outpatient labs and Prior outpatient radiology Prescription Management I considered prescription management with: Pain Medication Chronic Conditions Patient?s care impacted by: Other (CKD, lymphedema) Social Determinants Patient?s care significantly limited by Social Determinants of Health including: Other Social Determinant of Health poor living situation, not safe at home Discharge Plan Discharge Clinical Impression: Recurrent falls, Closed fracture of tibial plateau, Lymphedema, CKD (chronic kidney disease) Patient Disposition: Xfer Inpatient Rehab Fac Transfer Details: [facility] in [place] Prescriptions: No Action pravastatin 40 mg tablet 1 tab PO DAILY prednisone 2.5 mg tablet 1 tab PO DAILY furosemide 20 mg tablet 2 tab PO BID sertraline 50 mg tablet 1 tab PO DAILY tacrolimus 1 mg capsule 1 cap PO BID potassium chloride 10 mEq Tablet Extended Release 10 meq PO DAILY aspirin 81 mg Tablet,Delayed Release (Dr/Ec) 81 mg PO DAILY acetaminophen [Tylenol Arthritis] 650 mg Tablet Extended Release 650 mg PO Q8H PRN (Reason: arthritis) montelukast 10 mg tablet 10 mg PO BEDTIME metoprolol succinate 25 mg Tablet Extended Release 24 Hr 25 mg PO DAILY ferrous gluconate 324 mg (38 mg iron) Tablet 324 mg PO DAILY
[2023-03-06 08:04] VITALS: BP 139/66; BP 146/70; PULSE 85; PULSE 91; RESP 18; TEMP 36.6; O2SAT 98; BMI 21.2
[2023-03-06 08:10] VITALS: BP 139/66; PULSE 81; RESP 18; O2SAT 95
[2023-03-06 08:54] LABS: Alanine Aminotransferase 52 U/L (0-40); Albumin Level 2.8 g/dL (3.5-5.0); Alkaline Phosphatase 77 U/L (39-117); Anion Gap 16 (12-20); Aspartate Amino Transferase 54 U/L (5-37); Bilirubin Direct 0.3 mg/dL (0.0-0.5); Bilirubin Total 0.7 mg/dL (0.0-1.0); Blood Urea Nitrogen 59 mg/dL (9-16); Calcium 9.3 mg/dL (8.4-10.2); Carbon Dioxide 21 mmol/L (22-29); Chloride 106 mmol/L (96-108); Creatinine Clr Calc Pharmacy 32.7; Estimated Glomerular Filt Rate 41; Glucose Random 99 mg/dL (60-115); Magnesium 1.9 mg/dL (1.6-2.6); Potassium 3.9 mmol/L (3.3-5.1); Sodium 139 mmol/L (135-145); Total Protein 6.6 g/dL (6.5-8.0)
[2023-03-06 09:05] LABS: Basophils Percent Auto 0.4 % (0-2); Eosinophils Absolute Auto 0.2 X10*3/uL (0.0-0.4); Eosinophils Percent Auto 2.3 % (0-4); Hematocrit 29.4 % (42.0-52.0); Hemoglobin 9.7 g/dl (14.0-18.0); Imm Gran Abs Auto 0.04 X10*3/uL (0.00-0.03); Imm Gran Pct Auto 0.5 % (0.0-0.4); Lymphocytes Absolute Auto 0.8 X10*3/uL (1.2-4.9); Mean Corpuscular Hemoglobin 32.6 pg (27.0-33.0); Mean Corpuscular Volume 98.7 fL (80.0-98.0); Mean Platelet Volume 9.4 fL (9.4-12.4); Monocytes Absolute Auto 0.8 X10*3/uL (0.1-1.2); Monocytes Percent Auto 9.4 % (2-11); Neutrophils Absolute Auto 6.3 x10*3/uL (2.0-8.3); Neutrophils Percent Auto 77.4 % (45-73); Platelet Count 337 X10*3/uL (160-400); Red Blood Count 2.98 X10*6/uL (4.60-5.80); Red Cell Distribution Width 13.8 % (11.0-16.0); White Blood Count 8.2 X10*3/uL (4.8-10.8)
--- NOTE | 2023-03-06 10:45 | PC.NURSE ---
pt alert/oriented. skin tears on arms dressed. will apply knee splint
[2023-03-06 11:28] LABS: Erythrocyte Sedimentation Rate 103 MM/HR (0-15)
[2023-03-06 11:44] LABS: Appearance Urine Clear; Color Urine Yellow; Glucose Urine UA Negative (Negative); Leukocyte Esterase Urine Negative (Negative); Nitrite Urine Negative (Negative); PH 6.5 (5.0-9.0); Urine Blood Negative (Negative); Urine Ketones Negative (Negative); Urine Protein Negative (Neg-Trace)
[2023-03-06 12:00] VITALS: BP 151/87; PULSE 51; RESP 16; O2SAT 99
[2023-03-06 12:38] LABS: C Reactive Protein 10.83 mg/dL (< or = 0.50)
--- NOTE | 2023-03-06 12:55 | PHA.MEDREC ---
Pharmacy Consult ? Medication Reconciliation Pharmacy has completed the medication reconciliation. Spoke to patient to confirm meds. [facility] Patient states furosemide 40mg was switched from TID to BID.
--- NOTE | 2023-03-06 13:22 | MHC.CM.ED ---
Received consult for assessment of d/c needs: pt resides at home w/spouse: uses walker, has no services but has 2 supportive dtrs who assist. Pt states balance has been impaired for months resulting in falls. This visit resulted in a tibial plateau fx now in an immobilizer and NWB. PT eval recommends rehab to optimize balance and strength prior to return to home. Discussed w/pt: pt has Medicare only without a qualifying STR stay. Will refer to all 3 acute centers. If declined, will initiate SNF referrals and possibly [facility] financial services for [place] application. PCP: Dr. Prabhakar : HCP on file and verified. CM to follow.
[2023-03-06] MEDS: Furosemide 40 MG TABLET PO ×2 (14:28→20:09)
[2023-03-06 14:31] VITALS: BP 148/77; PULSE 73; RESP 16; O2SAT 100
--- NOTE | 2023-03-06 14:55 | PC.NURSE ---
pr PA, vitals changed to Q8H
[2023-03-06] MEDS: Tacrolimus 1 MG CAPSULE PO ×2 (15:11→20:09)
[2023-03-06 16:03] VITALS: BP 133/64; PULSE 81; RESP 22; TEMP 37.2
--- NOTE | 2023-03-06 16:49 | PC.NURSE ---
Pt arrived to ED overflow at approximately 1600. Pt A&Ox4, neuro assessment WNL. Pt wearing right knee brace on arrival states its for comfort. Pt has multiple skin tears and bruises see, ED Head to toe assessment for details. Pt denying pain at this time. VSS. Pt currently resting in bed eating dinner. CM at bedside this evening stating possible DC tomorrow, pt aware. All needs met at this time, all safety measures in place.
[2023-03-06] MEDS: Montelukast Sodium 10 MG TABLET PO (20:09)
[2023-03-06] MEDS: diphenhydrAMINE HCL 25 MG CAPSULE PO (22:28)
[2023-03-06 23:35] VITALS: BP 146/62; PULSE 63; RESP 18; TEMP 37; O2SAT 99
[2023-03-07] MEDS: Acetaminophen 325 MG TABLET 650 MG PO (01:16)
[2023-03-07] MEDS: oxyCODONE HCl Immed Release 5 MG TABLET 10 MG PO (02:10)
--- NOTE | 2023-03-07 03:08 | MHC.PIE ---
p; pt c/o pain to rt ankle/knee. prn Tylenol given with little to no result i; STACY morataya notified; new order oxy 10 now e; pt asleep in bed, no sign of pain noted in facial expression. will cont to mondicktor
[2023-03-07 06:54] VITALS: BP 109/52; PULSE 67; RESP 18; TEMP 36.7; O2SAT 97
--- NOTE | 2023-03-07 07:07 | MHC.CM.ED ---
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 Pt has a cellphone with him and states he will call family to inform them of the d/c plan.
[2023-03-07 07:46] VITALS: BP 133/67; PULSE 87
--- NOTE | 2023-03-07 08:16 | PC.NURSE ---
Addendum entered by Margaux Biggs RN 03/07/23 09:19: Pt to be transported to [facility] at 09:30am via BLS ambulance, Pt is aware of transfer. Original Note: Pt complaining of 7/10 R knee/leg pain, MD notified and a one time dose of 5mg oxycodone was ordered, Pt is A&O, in bed eating breakfast, vitals are stable, RR 16. Will monitor effectiveness of medication.
[2023-03-07] MEDS: Aspirin Enteric Coated 81 MG TABLET.DR PO (08:50)
[2023-03-07] MEDS: oxyCODONE HCl Immed Release 5 MG TABLET PO (08:50)
[2023-03-07] MEDS: Sertraline HCL 50 MG TABLET PO (08:50)
[2023-03-07] MEDS: Metoprolol Succinate ER 25 MG TAB.ER.24H PO (08:51)
[2023-03-07] MEDS: Furosemide 40 MG TABLET PO (08:51)
[2023-03-07] MEDS: predniSONE 2.5 MG TABLET PO (08:51)
[2023-03-07] MEDS: Ferrous Sulfate 324 MG TABLET.DR PO (08:51)
[2023-03-07] MEDS: Pravastatin Sodium 40 MG TABLET PO (09:02)
[2023-03-07] MEDS: Tacrolimus 1 MG CAPSULE PO (09:02)
[2023-03-07] MEDS: Potassium Chloride ER 10 MEQ TABLET.ER PO (09:02)
== END 2023-03-07 10:25 ==
PROVIDERS: Physician Assistant; Emergency Provider Emergency Medicine
DX: S82.141A Displaced bicondylar fracture of right tibia, initial encounter for closed fracture (principal); W06.XXXA Fall from bed, initial encounter; I89.0 Lymphedema, not elsewhere classified; I12.0 Hypertensive chronic kidney disease with stage 5 chronic kidney disease or end stage renal disease; N18.6 End stage renal disease; Z94.0 Kidney transplant status; R60.0 Localized edema; M71.21 Synovial cyst of popliteal space [Baker], right knee; M25.461 Effusion, right knee; R29.6 Repeated falls; Z91.81 History of falling; Y93.89 Activity, other specified; Y92.013 Bedroom of single-family (private) house as the place of occurrence of the external cause; Y99.9 Unspecified external cause status; Z79.02 Long term (current) use of antithrombotics/antiplatelets; Z79.899 Other long term (current) drug therapy; Z79.82 Long term (current) use of aspirin
CPT/HCPCS: 36415; 70450; 72125; 73564; 73700; 80048; 80076; 81003; 83735; 85025; 85652; 86140; 97162; 99285

== ENCOUNTER 2023-03-18 09:13 | Outpatient (REF) | payer MEDICARE, SELFPAY | END 2023-03-18 09:14 | disposition home or self-care (01) | LOC: HO.HOSX 09:13 | PROVIDERS: Visit Provider Physician Assistant | DX: Z13.89 Encounter for screening for other disorder (principal) ==

== ENCOUNTER 2023-03-29 11:00 | Outpatient (REF) | payer MEDICARE, SELFPAY | END 2023-03-29 11:01 | disposition home or self-care (01) | LOC: HO.HOSX 11:00 | PROVIDERS: Visit Provider Physician Assistant | DX: Z13.89 Encounter for screening for other disorder (principal) ==